=== PATIENT | male | born 2000 | race Caucasian/White ===

== ENCOUNTER 2020-01-10 21:37 | Emergency (ER) | payer BC ==
[2020-01-10] MEDS ORDERED: Sulfamethoxazole/Trimethoprim 800-160 MG Tab PO ONE (22:02)
[2020-01-10] MEDS ORDERED: Cephalexin 500 MG Cap PO ONE (22:02)
--- NOTE | 2020-01-10 22:06 | EDM.PDOC ---
ED HPI GENERAL MEDICAL PROBLEM - General Chief Complaint: Skin Complaint Stated Complaint: right leg swollen Time Seen by Provider: 01/10/20 21:50 Source of Information: Reports: Patient History Limitations: Reports: No Limitations - History of Present Illness INITIAL COMMENTS - FREE TEXT/NARRATIVE: History of present illness: [Patient is 19-year-old male who presents with pain involving his right lower leg. He states that there is an area of redness that started out small but has continued to grow in size over the last few days. He estimates is been there for about 3 days now. He is not diabetic, denies hypertension, denies any known injury or trauma to the leg. Denies any known bug bites or tick bites. States that he did have a sore throat about 3 weeks ago but it resolved without any intervention or antibiotics. Has not tried any pain medicine at home. States the pain is exacerbated by walking on it. No history of cellulitis. Denies any history of DVT or PE.] Review of systems: As per history of present illness and below otherwise all systems reviewed and negative. Past medical history: As per history of present illness and as reviewed below otherwise noncontributory. Surgical history: As per history of present illness and as reviewed below otherwise noncontributory. Social history: No reported history of drug or alcohol abuse. Family history: As per history of present illness and as reviewed below otherwise noncontributory. Physical exam: General: Awake, alert, no acute distress, A&O X3. HEENT: Atraumatic, normocephalic, pupils reactive, negative for conjunctival pallor or scleral icterus, mucous membranes moist, throat clear, neck supple, nontender, trachea midline. Lungs: Clear to auscultation, breath sounds equal bilaterally, chest nontender. Heart: RRR, normal S1S2, no JVD. Abdomen: Soft, nondistended, nontender. Negative for masses or hepatosplenomegaly. Negative for costovertebral tenderness. Pelvis: Stable nontender. Genitourinary: Deferred. Rectal: Deferred. Extremities: Atraumatic, no edema, Neurovascular unremarkable. Neuro: Motor and sensory grossly intact throughout. Exam nonfocal. SKIN: 5 x 5 cm area of erythema, induration, and warmth to the touch over the medial/anterior portion of the right lower leg. no calf pain or palpable cords Diagnostics: [] Therapeutics: [] Impression: [] Plan: [] Definitive disposition and diagnosis as appropriate pending reevaluation and review of above. - Related Data Allergies Allergy/AdvReac Type Severity Reaction Status Date / Time No Known Allergies Allergy Verified 01/10/20 21:54 Home Meds: Home Meds Sulfamethoxazole/Trimethoprim [Bactrim Ds Tablet] 1 each PO BID 7 Days #14 tablet 01/10/20 [Rx] cephALEXin [Keflex] 500 mg PO Q6H 7 Days #28 capsule 01/10/20 [Rx] Past Medical History - Past Health History Medical/Surgical History: Denies Medical/Surgical History Social & Family History - Recreational Drug Use Recreational Drug Use: No ED ROS GENERAL - Review of Systems Review Of Systems: Comprehensive ROS is negative, except as noted in HPI. ED EXAM, SKIN/RASH Exam: See Below (See H&P) ED SKIN PROCEDURES - Additional/Other Procedure(s) Other (Free Text) Procedure(s): Soft tissue ultrasound performed at the bedside reveals evidence of cobblestoning of the subcutaneous tissue over the suspected cellulitis region. No evidence for abscess on the ultrasound. Performed and interpreted by Tony Dumont MD Course - Vital Signs Text/Narrative:: Patient is mildly tachycardic. Based on his physical exam and symptoms he appears to have a relatively uncomplicated course of cellulitis of the leg. He received dose of antibiotics here and was sent with prescription for antibiotics for the next 7 days. Return precautions were also provided. Believe he will do well in the outpatient setting on oral antibiotics. Warned him for systemic symptoms such as fever, chills, spreading redness and signs of infection, etc. He feels comfortable this plan and is stable at discharge. Last Recorded V/S: Last Vital Signs Temp 36.8 C 01/10/20 21:47 Pulse 116 H 01/10/20 21:47 Resp 14 01/10/20 21:47 BP 143/71 H 01/10/20 21:47 Pulse Ox 98 01/10/20 21:47 - Orders/Labs/Meds Meds: Medications Discontinued Medications Generic Name Dose Route Start Last Admin Trade Name Freq PRN Reason Stop Dose Admin Cephalexin 500 mg 01/10/20 22:02 01/10/20 22:20 Keflex PO 01/10/20 22:03 500 mg ONETIME ONE Administration Trimethoprim/Sulfamethoxazole 1 tab 01/10/20 22:02 01/10/20 22:20 Septra Ds PO 01/10/20 22:03 1 tab ONETIME ONE Administration Departure - Departure Time of Disposition: 22:30 Disposition: Home, Self-Care 01 Condition: Good Clinical Impression: Cellulitis - Discharge Information Prescriptions: Sulfamethoxazole/Trimethoprim [Bactrim Ds Tablet] 1 each PO BID 7 Days #14 tablet cephALEXin [Keflex] 500 mg PO Q6H 7 Days #28 capsule Instructions: Cellulitis, Adult Referrals: PCP,None [Primary Care Provider] - Forms: ED Department Discharge Additional Instructions: Take all medications as prescribed. Follow-up with primary care doctor. Return to the ED with any new or worsening symptoms. The following information is given to patients seen in the emergency department who are being discharged to home. This information is to outline your options for follow-up care. We provide all patients seen in our emergency department with a follow-up referral. The need for follow-up, as well as the timing and circumstances, are variable depending upon the specifics of your emergency department visit. If you don't have a primary care physician on staff, we will provide you with a referral. We always advise you to contact your personal physician following an emergency department visit to inform them of the circumstance of the visit and for follow-up with them and/or the need for any referrals to a consulting specialist. The emergency department will also refer you to a specialist when appropriate. This referral assures that you have the opportunity for follow-up care with a specialist. All of these measure are taken in an effort to provide you with optimal care, which includes your follow-up. Under all circumstances we always encourage you to contact your private physician who remains a resource for coordinating your care. When calling for follow-up care, please make the office aware that this follow-up is from your recent emergency room visit. If for any reason you are refused follow-up, please contact the [facility] Emergency Department at and asked to speak to the emergency department charge nurse. Sepsis Event Note (ED) - Evaluation Sepsis Screening Result: No Definite Risk - Focused Exam Vital Signs: Vital Signs Temp Pulse Resp BP Pulse Ox 01/10/20 21:47 36.8 C 116 H 14 143/71 H 98
== END 2020-01-10 22:35 | disposition home or self-care (01) ==
LOC: MW.ED 21:37
DX: L03.115 Cellulitis of right lower limb (principal); R00.0 Tachycardia, unspecified
CPT/HCPCS: 99283; A9270

== ENCOUNTER 2020-01-12 22:43 | Inpatient (IN) | payer BC ==
[2020-01-12] MEDS ORDERED: Sodium Chloride 0.9% 2.5 ML Syringe FLUSH PRN (23:11)
[2020-01-12] MEDS ORDERED: Morphine 4 MG/ML Syringe IVPUSH ONE (23:11)
[2020-01-12] MEDS ORDERED: Ketorolac 15 MG/ML SDV IVPUSH ONE (23:11)
[2020-01-12] MEDS ORDERED: Ondansetron 4 MG/2 ML SDV IVPUSH ONE (23:11)
[2020-01-12] MEDS ORDERED: Sodium Chloride 0.9% 10 ML Syringe FLUSH PRN (23:11)
[2020-01-12] MEDS ORDERED: Sodium Chloride 0.9% 3,000 ML IV ONE (23:11)
--- NOTE | 2020-01-12 23:16 | EDM.PDOC ---
ED HPI GENERAL MEDICAL PROBLEM - General Chief Complaint: Skin Complaint Stated Complaint: CELLULITIS Time Seen by Provider: 01/12/20 22:47 Source of Information: Reports: Patient History Limitations: Reports: No Limitations - History of Present Illness INITIAL COMMENTS - FREE TEXT/NARRATIVE: History of present illness: [Patient is 19-year-old male with a history of recently diagnosed cellulitis of the right lower extremity who presents with recurrent and worsening cellulitis. I saw him 2 days ago, he had an area of erythema and redness consistent with cellulitis over the anterior right lower leg. He was mildly tachycardic but otherwise nontoxic in appearance with no fever. I provided him with Bactrim and Keflex which he has been taking for the last 2 days. He states that in spite of this his symptoms have worsened and the area of redness has spread instead of gone down. Denies fever. Denies any systemic symptoms. She states the area of infection does not seem to be getting better in spite of the antibiotics. States the pain has worsened and that ibuprofen is not as effective as it was early on.] Review of systems: As per history of present illness and below otherwise all systems reviewed and negative. Past medical history: As per history of present illness and as reviewed below otherwise noncontributory. Surgical history: As per history of present illness and as reviewed below otherwise noncontributory. Social history: No reported history of drug or alcohol abuse. Family history: As per history of present illness and as reviewed below otherwise noncontributory. Physical exam: General: Awake, alert, no acute distress, A&O X3. HEENT: Atraumatic, normocephalic, pupils reactive, negative for conjunctival pallor or scleral icterus, mucous membranes moist, throat clear, neck supple, nontender, trachea midline. Lungs: Clear to auscultation, breath sounds equal bilaterally, chest nontender. Heart: tachycardic, normal S1S2, no JVD. Abdomen: Soft, nondistended, nontender. Negative for masses or hepatosplenomegaly. Negative for costovertebral tenderness. Pelvis: Stable nontender. Genitourinary: Deferred. Rectal: Deferred. Extremities: Atraumatic, no edema, Neurovascular unremarkable. Skin: Patient with area of erythema over the right anterior lower extremity, slightly worse than his initial presentation, no evidence for any fluctuant mass or purulent discharge on examination. Area of erythema is roughly 8 x 10 cm. Right leg is neurovascularly intact Neuro: Motor and sensory grossly intact throughout. Exam nonfocal. Diagnostics: [] Therapeutics: [] Impression: [] Plan: [] Definitive disposition and diagnosis as appropriate pending reevaluation and review of above. Right Leg Pain Score (Numeric/FACES): 8 - Related Data Allergies Allergy/AdvReac Type Severity Reaction Status Date / Time No Known Allergies Allergy Verified 01/12/20 23:12 Home Meds: Home Meds Sulfamethoxazole/Trimethoprim [Bactrim Ds Tablet] 1 each PO BID 7 Days #14 tablet 01/10/20 [Rx] cephALEXin [Keflex] 500 mg PO Q6H 7 Days #28 capsule 01/10/20 [Rx] Past Medical History - Past Health History Medical/Surgical History: Denies Medical/Surgical History ED ROS GENERAL - Review of Systems Review Of Systems: Comprehensive ROS is negative, except as noted in HPI. ED EXAM, SKIN/RASH Exam: See Below (see h and p) Course - Vital Signs Text/Narrative:: Patient to be admitted for continued IV antibiotics for cellulitis that was refractory to outpatient antibiotics. Vital signs stable at the time of admission. Status post vancomycin and clindamycin. Blood cultures drawn. Patient agreeable with plan and stable at time of admission. Last Recorded V/S: Last Vital Signs Temp 36.1 C 01/12/20 23:08 Pulse 122 H 01/12/20 23:08 Resp 18 01/12/20 23:08 BP 145/82 H 01/12/20 23:08 Pulse Ox 98 01/12/20 23:08 - Orders/Labs/Meds Orders: Active Orders 24 hr Category Date Time Status Admission Status [Patient Status] [ADT] Stat ADT 01/13/20 01:03 Ordered CULTURE BLOOD [BC] Stat Lab 01/12/20 23:56 Results CULTURE BLOOD [BC] Stat Lab 01/12/20 23:59 Received Clindamycin Phosphate [Cleocin] 600 mg Med 01/13/20 00:56 Active Sodium Chloride 0.9% [Normal Saline] 50 ml IV ONETIME Sodium Chloride 0.9% [Normal Saline] 3,000 ml Med 01/12/20 23:11 Active IV .Bolus Sodium Chloride 0.9% [Saline Flush] Med 01/12/20 23:11 Active 10 ml FLUSH ASDIRECTED PRN Sodium Chloride 0.9% [Saline Flush] Med 01/12/20 23:11 Active 2.5 ml FLUSH ASDIRECTED PRN Blood Culture x2 Reflex Set [OM.PC] Stat Oth 01/12/20 23:11 Ordered Saline Lock Insert [OM.PC] Stat Oth 01/12/20 23:11 Ordered Medication Orders Sodium Chloride (Normal Saline) 3,000 mls @ 999 mls/hr IV .Bolus ONE Stop: 01/13/20 02:11 Last Admin: 01/12/20 23:33 Dose: 999 mls/hr Documented by: HARVEY Clindamycin Phosphate 600 mg/ (Sodium Chloride) 54 mls @ 100 mls/hr IV ONETIME ONE Stop: 01/13/20 01:28 Sodium Chloride (Saline Flush) 10 ml FLUSH ASDIRECTED PRN PRN Reason: Keep Vein Open Sodium Chloride (Saline Flush) 2.5 ml FLUSH ASDIRECTED PRN PRN Reason: Keep Vein Open Labs: Laboratory Tests 01/12/20 01/12/20 01/12/20 Range/Units 23:15 23:15 23:15 WBC 16.01 H (4.0-11.0) K/uL RBC 4.99 (4.50-5.90) M/uL Hgb 14.8 (13.0-17.0) g/dL Hct 42.3 (38.0-50.0) % MCV 84.8 (80.0-98.0) fL MCH 29.7 (27.0-32.0) pg MCHC 35.0 (31.0-37.0) g/dL RDW Std Deviation 38.7 (28.0-62.0) fl RDW Coeff of Francisca 13 (11.0-15.0) % Plt Count 234 (150-400) K/uL MPV 10.20 (7.40-12.00) fL Neut % (Auto) 77.0 (48.0-80.0) % Lymph % (Auto) 12.7 L (16.0-40.0) % [place] % (Auto) 8.5 (0.0-15.0) % Eos % (Auto) 1.4 (0.0-7.0) % Baso % (Auto) 0.4 (0.0-1.5) % Neut # (Auto) 12.3 H (1.4-5.7) K/uL Lymph # (Auto) 2.0 (0.6-2.4) K/uL [place] # (Auto) 1.4 H (0.0-0.8) K/uL Eos # (Auto) 0.2 (0.0-0.7) K/uL Baso # (Auto) 0.1 (0.0-0.1) K/uL Nucleated RBC % 0.0 /100WBC Nucleated RBCs # 0 K/uL Lactate 1.1 (0.20-2.00) mmol/L Sodium 137 (136-148) mmol/L Potassium 3.7 (3.5-5.1) mmol/L Chloride 103 (98-107) mmol/L Carbon Dioxide 23.1 (21.0-32.0) mmol/L BUN 11 (7.0-18.0) mg/dL Creatinine 0.9 (0.8-1.3) mg/dL Est Cr Clr Drug Dosing 146.73 mL/min Estimated GFR (MDRD) > 60.0 ml/min Glucose 96 (74-106) mg/dL Calcium 9.4 (8.5-10.1) mg/dL Total Bilirubin 0.5 (0.2-1.0) mg/dL AST 17 (15-37) IU/L ALT 26 (14-63) IU/L Alkaline Phosphatase 64 (46-116) U/L Total Protein 8.4 H (6.4-8.2) g/dL Albumin 3.8 (3.4-5.0) g/dL Globulin 4.6 H (2.6-4.0) g/dL Albumin/Globulin Ratio 0.8 L (0.9-1.6) Meds: Medications Generic Name Dose Route Start Last Admin Trade Name Freq PRN Reason Stop Dose Admin Sodium Chloride 3,000 mls @ 999 mls/hr 01/12/20 23:11 01/12/20 23:33 Normal Saline IV 01/13/20 02:11 999 mls/hr .Bolus ONE Administration Clindamycin Phosphate 600 mg/ 54 mls @ 100 mls/hr 01/13/20 00:56 Sodium Chloride IV 01/13/20 01:28 ONETIME ONE Sodium Chloride 10 ml 01/12/20 23:11 Saline Flush FLUSH ASDIRECTED PRN Keep Vein Open Sodium Chloride 2.5 ml 01/12/20 23:11 Saline Flush FLUSH ASDIRECTED PRN Keep Vein Open Discontinued Medications Generic Name Dose Route Start Last Admin Trade Name Freq PRN Reason Stop Dose Admin Diphenhydramine HCl 50 mg 01/13/20 00:55 Benadryl IVPUSH 01/13/20 00:56 ONETIME ONE Vancomycin HCl 1,500 mg/ 100 mls @ 100 mls/hr 01/12/20 23:11 01/13/20 00:02 Sodium Chloride IV 01/13/20 00:10 100 mls/hr ONETIME ONE Administration Vancomycin HCl 1.5 gm/ Premix 300 mls @ 300 mls/hr 01/13/20 00:01 IV 01/13/20 00:02 ONETIME ONE Ketorolac Tromethamine 15 mg 01/12/20 23:11 01/12/20 23:36 Toradol IVPUSH 01/12/20 23:12 15 mg ONETIME ONE Administration Morphine Sulfate 4 mg 01/12/20 23:11 01/12/20 23:37 Morphine IVPUSH 01/12/20 23:12 4 mg ONETIME ONE Administration Ondansetron HCl 4 mg 01/12/20 23:11 01/12/20 23:34 Zofran IVPUSH 01/12/20 23:12 4 mg ONETIME ONE Administration Departure - Departure Time of Disposition: 01:06 Disposition: Admitted As Inpatient 64 Condition: Good Clinical Impression: Cellulitis, Sepsis - Discharge Information Referrals: Edgar Verde MD [Primary Care Provider] - Forms: ED Department Discharge Critical Care Note - Critical Care Note Total Time (mins): 35 Comments: Patient has refractory cellulitis to outpatient antibiotics. On arrival he is tachycardic, has leukocytosis, with source of an infection, technically meeting sepsis criteria. He showed clinical improvement through his emergency department stay. He received 3 L of normal saline, IV vancomycin and clindamycin, blood cultures were drawn, lactic acid normal, he required frequent reexaminations, hemodynamic monitoring, and reassessment after fluid bolus and antibiotics provided. Sepsis Event Note (ED) - Evaluation Sepsis Screening Result: No Definite Risk - Focused Exam Vital Signs: Vital Signs Temp Pulse Resp BP Pulse Ox 01/12/20 23:08 36.1 C 122 H 18 145/82 H 98 - My Orders Last 24 Hours: My Active Orders 01/12/20 23:11 Sodium Chloride 0.9% [Normal Saline] 3,000 ml IV .Bolus Sodium Chloride 0.9% [Saline Flush] 10 ml FLUSH ASDIRECTED PRN Sodium Chloride 0.9% [Saline Flush] 2.5 ml FLUSH ASDIRECTED PRN Blood Culture x2 Reflex Set [OM.PC] Stat Saline Lock Insert [OM.PC] Stat 01/12/20 23:56 CULTURE BLOOD [BC] Stat 01/12/20 23:59 CULTURE BLOOD [BC] Stat 01/13/20 00:56 Clindamycin Phosphate [Cleocin] 600 mg Sodium Chloride 0.9% [Normal Saline] 50 ml IV ONETIME 01/13/20 01:03 Admission Status [Patient Status] [ADT] Stat - Assessment/Plan Last 24 Hours: My Active Orders 01/12/20 23:11 Sodium Chloride 0.9% [Normal Saline] 3,000 ml IV .Bolus Sodium Chloride 0.9% [Saline Flush] 10 ml FLUSH ASDIRECTED PRN Sodium Chloride 0.9% [Saline Flush] 2.5 ml FLUSH ASDIRECTED PRN Blood Culture x2 Reflex Set [OM.PC] Stat Saline Lock Insert [OM.PC] Stat 01/12/20 23:56 CULTURE BLOOD [BC] Stat 01/12/20 23:59 CULTURE BLOOD [BC] Stat 01/13/20 00:56 Clindamycin Phosphate [Cleocin] 600 mg Sodium Chloride 0.9% [Normal Saline] 50 ml IV ONETIME 01/13/20 01:03 Admission Status [Patient Status] [ADT] Stat Assessment:: 01/13/20 - 0100: Sepsis reassessment and reevaluation shows patient's tachycardia has resolved, he is feeling slightly itchy after getting the vancomycin but otherwise pain is controlled and he is overall feeling well.
[2020-01-12 23:55] LABS: BLOOD UREA NITROGEN,BUN 11 mg/dL (7.0-18.0); CARBON DIOXIDE,CO2 23.1 mmol/L (21.0-32.0); CHLORIDE,CL 103 mmol/L (98-107); GLUCOSE RANDOM 96 mg/dL (74-106); POTASSIUM,K 3.7 mmol/L (3.5-5.1); SODIUM,NA 137 mmol/L (136-148)
--- NOTE | 2020-01-13 00:42 | CR ---
Indication: Cellulitis, eval for deep infection. Technique: Two views of the right tibia and fibula Comparison: None Findings: The tibia and fibula are intact. There is no fracture or osseous erosion. Mild leg subcutaneous edema is noted. There is no subcutaneous emphysema. Impression: No findings to suggest osteomyelitis. Dictated by Jacy Marion MD @ Jan 13 2020 12:39AM Signed by Dr. Jacy Marion @ Jan 13 2020 12:41AM
[2020-01-13] MEDS ORDERED: diphenhydrAMINE 50 MG/ML SDV IVPUSH ONE (00:55)
[2020-01-13] MEDS ORDERED: Clindamycin Phosphate in D5W 900 MG in Premix Bag 1 BAG IV ONE ×2 (01:12)
[2020-01-13] MEDS ORDERED: diphenhydrAMINE 50 MG/ML SDV IVPUSH PRN (03:36)
[2020-01-13] MEDS: Lactated Ringers 1,000 ML IV SCH ×3 (03:49→22:57)
[2020-01-13] MEDS: Morphine 2 MG/ML SYRINGE IVPUSH PRN ×3 (03:59→19:45)
[2020-01-13] MEDS ORDERED: Heparin Sodium 5,000 Units/ML Vial SUBCUT SCH (06:00)
[2020-01-13 06:26] LABS: BLOOD UREA NITROGEN,BUN 11 mg/dL (7.0-18.0); CARBON DIOXIDE,CO2 19.9 mmol/L (21.0-32.0); GLUCOSE RANDOM 85 mg/dL (74-106)
[2020-01-13 06:38] LABS: CHLORIDE,CL 103 mmol/L (98-107); POTASSIUM,K 4.5 mmol/L (3.5-5.1); SODIUM,NA 135 mmol/L (136-148)
--- NOTE | 2020-01-13 07:27 | PCM.HP.2 ---
<Bull Telles M - Last Filed: 01/13/20 11:01> H&P History of Present Illness - General Date of Service: 01/13/20 Admit Problem/Dx: Admission Diagnosis/Problem Admission Diagnosis/Problem Cellulitis of leg Source of Information: Patient History Limitations: Reports: No Limitations - History of Present Illness Initial Comments - Free Text/Narative: 19-year-old male presents with right anterior leg swelling and redness for approximately 1 week. He reports no significant PMH. Patient was seen in the ED approximately 2 days ago, diagnosed with cellulitis and given scripts for bactrim and keflex. Patient reports that he took the antibiotics for 2 days and the area of redness spread further. He reports that the area feels hot, warm to touch and is a bit painful. He denies any prior history of skin infections. Denies any trauma to leg, laceration or insect bites. Denies any fevers, chills, sore throat, cough, SOB, chest pain, nausea, vomiting, abdominal pain, diarrhea, blood in stool, blood in urine, numbness or tingling in extremities. In the ER, WBC 16,000, lactate normal and CMP unremarkable. Patient given 3 L IV NS bolus, blood cultures obtained and given doses of IV vancomycin and IV clindamycin. Tib/fib x-ray showed mild leg subcutaneous edema, no subcutaneous emphysema and no findings to suggest osteomyelitis. Patient admitted for further evaluation and treatment. Right Leg Pain Score (Numeric/FACES): 8 - Related Data Allergies/Adverse Reactions: Allergies Allergy/AdvReac Type Severity Reaction Status Date / Time No Known Allergies Allergy Verified 01/13/20 03:01 Home Medications: Home Meds Sulfamethoxazole/Trimethoprim [Bactrim Ds Tablet] 1 each PO BID 7 Days #14 tablet 01/10/20 [Rx] cephALEXin [Keflex] 500 mg PO Q6H 7 Days #28 capsule 01/10/20 [Rx] Past Medical History - Past Health History Medical/Surgical History: Denies Medical/Surgical History Social & Family History - Caffeine Use Caffeine Use: Reports: Coffee, Soda, Tea - Recreational Drug Use Recreational Drug Use: No H&P Review of Systems - Review of Systems: Review Of Systems: Comprehensive ROS is negative, except as noted in HPI. Exam - Exam Exam: See Below - Vital Signs Vital Signs: Last Vital Signs Temp 37.6 C 01/13/20 02:40 Pulse 96 01/13/20 02:40 Resp 17 01/13/20 02:40 BP 133/74 01/13/20 02:40 Pulse Ox 98 01/13/20 02:40 Weight: 93 kg - Exam General: Alert, Oriented, Cooperative, Other (NAD) HEENT: Conjunctiva Clear, EOMI, Hearing Intact, Mucosa Moist & [place], Posterior Pharynx Clear, Pupils Equal, Pupils Reactive Neck: Supple, Trachea Midline Lungs: Clear to Auscultation, Normal Respiratory Effort Cardiovascular: Regular Rate, Regular Rhythm GI/Abdominal Exam: Normal Bowel Sounds, Soft, Non-Tender, No Distention Peripheral Pulses: 2+: Radial (L), Radial (R), Posterior Tibial (L), Posterior Tibial (R) Skin: Other (Right leg: area of erythema and edema over anterior mid-leg approximately 10 cm x 10 cm, non-tender to palpation, increased warmth to touch, appears to have receded approximately 1 cm from pencil markings.) Neurological: Cranial Nerves Intact, Strength Equal Bilateral, Normal Speech, Normal Tone Neuro Extensive - Mental Status: Alert, Oriented x3, Normal Mood/Affect Psychiatric: Alert, Normal Affect, Normal Mood - Patient Data Lab Results Last 24 hrs: Laboratory Results - last 24 hr 01/12/20 01/12/20 01/12/20 Range/Units 23:15 23:15 23:15 WBC 16.01 H (4.0-11.0) K/uL RBC 4.99 (4.50-5.90) M/uL Hgb 14.8 (13.0-17.0) g/dL Hct 42.3 (38.0-50.0) % MCV 84.8 (80.0-98.0) fL MCH 29.7 (27.0-32.0) pg MCHC 35.0 (31.0-37.0) g/dL RDW Std Deviation 38.7 (28.0-62.0) fl RDW Coeff of Francisca 13 (11.0-15.0) % Plt Count 234 (150-400) K/uL MPV 10.20 (7.40-12.00) fL Neut % (Auto) 77.0 (48.0-80.0) % Lymph % (Auto) 12.7 L (16.0-40.0) % [place] % (Auto) 8.5 (0.0-15.0) % Eos % (Auto) 1.4 (0.0-7.0) % Baso % (Auto) 0.4 (0.0-1.5) % Neut # (Auto) 12.3 H (1.4-5.7) K/uL Lymph # (Auto) 2.0 (0.6-2.4) K/uL [place] # (Auto) 1.4 H (0.0-0.8) K/uL Eos # (Auto) 0.2 (0.0-0.7) K/uL Baso # (Auto) 0.1 (0.0-0.1) K/uL Nucleated RBC % 0.0 /100WBC Nucleated RBCs # 0 K/uL Lactate 1.1 (0.20-2.00) mmol/L Sodium 137 (136-148) mmol/L Potassium 3.7 (3.5-5.1) mmol/L Chloride 103 (98-107) mmol/L Carbon Dioxide 23.1 (21.0-32.0) mmol/L BUN 11 (7.0-18.0) mg/dL Creatinine 0.9 (0.8-1.3) mg/dL Est Cr Clr Drug Dosing 146.73 mL/min Estimated GFR (MDRD) > 60.0 ml/min Glucose 96 (74-106) mg/dL Calcium 9.4 (8.5-10.1) mg/dL Total Bilirubin 0.5 (0.2-1.0) mg/dL AST 17 (15-37) IU/L ALT 26 (14-63) IU/L Alkaline Phosphatase 64 (46-116) U/L Total Protein 8.4 H (6.4-8.2) g/dL Albumin 3.8 (3.4-5.0) g/dL Globulin 4.6 H (2.6-4.0) g/dL Albumin/Globulin Ratio 0.8 L (0.9-1.6) COVID-19 (CURT) (NEGATIVE) 01/13/20 01/13/20 01/13/20 Range/Units 01:25 05:33 06:15 WBC 14.88 H (4.0-11.0) K/uL RBC 4.49 L (4.50-5.90) M/uL Hgb 13.1 (13.0-17.0) g/dL Hct 38.5 (38.0-50.0) % MCV 85.7 (80.0-98.0) fL MCH 29.2 (27.0-32.0) pg MCHC 34.0 (31.0-37.0) g/dL RDW Std Deviation 39.4 (28.0-62.0) fl RDW Coeff of Francisca 13 (11.0-15.0) % Plt Count 214 (150-400) K/uL MPV 10.40 (7.40-12.00) fL Neut % (Auto) 76.2 (48.0-80.0) % Lymph % (Auto) 13.4 L (16.0-40.0) % [place] % (Auto) 8.5 (0.0-15.0) % Eos % (Auto) 1.6 (0.0-7.0) % Baso % (Auto) 0.3 (0.0-1.5) % Neut # (Auto) 11.3 H (1.4-5.7) K/uL Lymph # (Auto) 2.0 (0.6-2.4) K/uL [place] # (Auto) 1.3 H (0.0-0.8) K/uL Eos # (Auto) 0.2 (0.0-0.7) K/uL Baso # (Auto) 0.0 (0.0-0.1) K/uL Nucleated RBC % 0.0 /100WBC Nucleated RBCs # 0 K/uL Lactate (0.20-2.00) mmol/L Sodium 135 L (136-148) mmol/L Potassium 4.5 (3.5-5.1) mmol/L Chloride 103 (98-107) mmol/L Carbon Dioxide 19.9 L (21.0-32.0) mmol/L BUN 11 (7.0-18.0) mg/dL Creatinine 0.9 (0.8-1.3) mg/dL Est Cr Clr Drug Dosing 146.73 mL/min Estimated GFR (MDRD) > 60.0 ml/min Glucose 85 (74-106) mg/dL Calcium 8.5 (8.5-10.1) mg/dL Total Bilirubin (0.2-1.0) mg/dL AST (15-37) IU/L ALT (14-63) IU/L Alkaline Phosphatase (46-116) U/L Total Protein (6.4-8.2) g/dL Albumin (3.4-5.0) g/dL Globulin (2.6-4.0) g/dL Albumin/Globulin Ratio (0.9-1.6) COVID-19 (CURT) NEGATIVE (NEGATIVE) Result Diagrams: 01/13/20 06:15 01/13/20 05:33 Hiren Results Last 24 hrs: Microbiology 01/12/20 23:56 Anaerobic Blood Culture - Final Blood - Venous Sepsis Event Note - Evaluation Sepsis Screening Result: Sepsis Risk - Focused Exam Vital Signs: Vital Signs Temp Pulse Resp BP Pulse Ox 01/13/20 02:40 37.6 C 96 17 133/74 98 01/13/20 01:51 95 16 121/80 100 01/12/20 23:08 36.1 C 122 H 18 145/82 H 98 Problem List Initiated/Reviewed/Updated: Yes Orders Last 24hrs: Active Orders 24 hr Category Date Time Status Admission Status [Patient Status] [ADT] Stat ADT 01/13/20 01:03 Active Ambulate [RC] ASDIRECTED Care 01/13/20 03:29 Active Discontinue Telemetry Monitoring [Cardiac Monitoring Care 01/13/20 03:38 Active Discontinue] [RC] Click to Edit Oxygen Therapy Adult [Oxygen Therapy] [RC] ASDIRECTED Care 01/13/20 03:27 Active Telemetry Monitoring [Cardiac Monitoring] [RC] Q8H Care 01/13/20 02:33 Active Vital Signs [RC] Q4H Care 01/13/20 03:26 Active Regular Diet [DIET] Diet 01/13/20 Breakfast Active CULTURE BLOOD [BC] Stat Lab 01/12/20 23:56 Results CULTURE BLOOD [BC] Stat Lab 01/12/20 23:59 Received VANCOMYCIN TROUGH [CHEM] Timed Lab 01/14/20 07:30 Ordered Acetaminophen [Tylenol Extra Strength] Med 01/13/20 03:35 Active 500 mg PO Q4H PRN Heparin Sodium Med 01/13/20 06:00 Active 5,000 units SUBCUT Q8H Ketorolac [Toradol] Med 01/13/20 03:34 Active 15 mg IVPUSH Q6H PRN Lactated Ringers [Ringers, Lactated] 1,000 ml Med 01/13/20 03:30 Active IV ASDIRECTED Morphine Med 01/13/20 03:33 Active 2 mg IVPUSH Q6H PRN Pharmacy to Dose - Vancomycin Med 01/13/20 03:30 Active 1 dose .XX ASDIRECTED Sodium Chloride 0.9% [Saline Flush] Med 01/12/20 23:11 Active 10 ml FLUSH ASDIRECTED PRN Sodium Chloride 0.9% [Saline Flush] Med 01/12/20 23:11 Active 2.5 ml FLUSH ASDIRECTED PRN Vancomycin 1.25 gm Med 01/13/20 08:00 Active Sodium Chloride 0.9% [Normal Saline (AdvBag)] 250 ml IV Q8H diphenhydrAMINE [Benadryl] Med 01/13/20 03:36 Active 25 mg IVPUSH Q6H PRN Blood Culture x2 Reflex Set [OM.PC] Stat Oth 01/12/20 23:11 Ordered Saline Lock Insert [OM.PC] Stat Oth 01/12/20 23:11 Ordered Medication Orders Acetaminophen (Tylenol Extra Strength) 500 mg PO Q4H PRN PRN Reason: Fever Diphenhydramine HCl (Benadryl) 25 mg IVPUSH Q6H PRN PRN Reason: Itching Heparin Sodium (Porcine) (Heparin Sodium) 5,000 units SUBCUT Q8H [facility] Last Admin: 01/13/20 06:06 Dose: 5,000 units Documented by: PASTGEN Lactated Ringer's (Ringers, Lactated) 1,000 mls @ 125 mls/hr IV ASDIRECTED MARGARETTE Last Admin: 01/13/20 03:49 Dose: 125 mls/hr Documented by: PASTGEN Vancomycin HCl 1.25 gm/ Sodium (Chloride) 250 mls @ 166.667 mls/hr IV Q8H [facility] Ketorolac Tromethamine (Toradol) 15 mg IVPUSH Q6H PRN PRN Reason: Pain Morphine Sulfate (Morphine) 2 mg IVPUSH Q6H PRN PRN Reason: Pain Last Admin: 01/13/20 03:59 Dose: 2 mg Documented by: ANGELA Sodium Chloride (Saline Flush) 10 ml FLUSH ASDIRECTED PRN PRN Reason: Keep Vein Open Sodium Chloride (Saline Flush) 2.5 ml FLUSH ASDIRECTED PRN PRN Reason: Keep Vein Open Vancomycin HCl (Pharmacy To Dose - Vancomycin) 1 dose .XX ASDIRECTED [facility] Assessment/Plan Comment:: Assessment and Plan: 1. Sepsis secondary to RLE cellulitis: - Admit to med/surg. Will treat with IV vancomycin. Blood cultures pending. Patient received 3 L IV NS bolus in ER and will continue IV LR 125 cc/hr. Lactate level normal. Vital signs stable. Leukocytosis downtrending today. Area of erythema appears to have receded approximately 1 cm from marked pencil drawings. Will continue to monitor. 2. DVT prophylaxis: Heparin. <Ana Rodríguez - Last Filed: 01/13/20 21:52> H&P History of Present Illness - General Admit Problem/Dx: Admission Diagnosis/Problem Admission Diagnosis/Problem Cellulitis of leg - History of Present Illness Initial Comments - Free Text/Narative: I performed a history and physical exam of the patient and discussed management with resident. I have reviewed the residents note and agree with documented findings and plan unless otherwise specified in my note. Exam - Vital Signs Vital Signs: Last Vital Signs Temp 37.1 C 01/13/20 19:36 Pulse 92 01/13/20 19:36 Resp 16 01/13/20 19:36 BP 135/53 L 01/13/20 19:36 Pulse Ox 97 01/13/20 19:36 - Patient Data Lab Results Last 24 hrs: Laboratory Results - last 24 hr 01/12/20 01/12/20 01/12/20 Range/Units 23:15 23:15 23:15 WBC 16.01 H (4.0-11.0) K/uL RBC 4.99 (4.50-5.90) M/uL Hgb 14.8 (13.0-17.0) g/dL Hct 42.3 (38.0-50.0) % MCV 84.8 (80.0-98.0) fL MCH 29.7 (27.0-32.0) pg MCHC 35.0 (31.0-37.0) g/dL RDW Std Deviation 38.7 (28.0-62.0) fl RDW Coeff of Francisca 13 (11.0-15.0) % Plt Count 234 (150-400) K/uL MPV 10.20 (7.40-12.00) fL Neut % (Auto) 77.0 (48.0-80.0) % Lymph % (Auto) 12.7 L (16.0-40.0) % [place] % (Auto) 8.5 (0.0-15.0) % Eos % (Auto) 1.4 (0.0-7.0) % Baso % (Auto) 0.4 (0.0-1.5) % Neut # (Auto) 12.3 H (1.4-5.7) K/uL Lymph # (Auto) 2.0 (0.6-2.4) K/uL [place] # (Auto) 1.4 H (0.0-0.8) K/uL Eos # (Auto) 0.2 (0.0-0.7) K/uL Baso # (Auto) 0.1 (0.0-0.1) K/uL Nucleated RBC % 0.0 /100WBC Nucleated RBCs # 0 K/uL Lactate 1.1 (0.20-2.00) mmol/L Sodium 137 (136-148) mmol/L Potassium 3.7 (3.5-5.1) mmol/L Chloride 103 (98-107) mmol/L Carbon Dioxide 23.1 (21.0-32.0) mmol/L BUN 11 (7.0-18.0) mg/dL Creatinine 0.9 (0.8-1.3) mg/dL Est Cr Clr Drug Dosing 146.73 mL/min Estimated GFR (MDRD) > 60.0 ml/min Glucose 96 (74-106) mg/dL Calcium 9.4 (8.5-10.1) mg/dL Total Bilirubin 0.5 (0.2-1.0) mg/dL AST 17 (15-37) IU/L ALT 26 (14-63) IU/L Alkaline Phosphatase 64 (46-116) U/L Total Protein 8.4 H (6.4-8.2) g/dL Albumin 3.8 (3.4-5.0) g/dL Globulin 4.6 H (2.6-4.0) g/dL Albumin/Globulin Ratio 0.8 L (0.9-1.6) COVID-19 (CURT) (NEGATIVE) 01/13/20 01/13/20 01/13/20 Range/Units 01:25 05:33 06:15 WBC 14.88 H (4.0-11.0) K/uL RBC 4.49 L (4.50-5.90) M/uL Hgb 13.1 (13.0-17.0) g/dL Hct 38.5 (38.0-50.0) % MCV 85.7 (80.0-98.0) fL MCH 29.2 (27.0-32.0) pg MCHC 34.0 (31.0-37.0) g/dL RDW Std Deviation 39.4 (28.0-62.0) fl RDW Coeff of Francisca 13 (11.0-15.0) % Plt Count 214 (150-400) K/uL MPV 10.40 (7.40-12.00) fL Neut % (Auto) 76.2 (48.0-80.0) % Lymph % (Auto) 13.4 L (16.0-40.0) % [place] % (Auto) 8.5 (0.0-15.0) % Eos % (Auto) 1.6 (0.0-7.0) % Baso % (Auto) 0.3 (0.0-1.5) % Neut # (Auto) 11.3 H (1.4-5.7) K/uL Lymph # (Auto) 2.0 (0.6-2.4) K/uL [place] # (Auto) 1.3 H (0.0-0.8) K/uL Eos # (Auto) 0.2 (0.0-0.7) K/uL Baso # (Auto) 0.0 (0.0-0.1) K/uL Nucleated RBC % 0.0 /100WBC Nucleated RBCs # 0 K/uL Lactate (0.20-2.00) mmol/L Sodium 135 L (136-148) mmol/L Potassium 4.5 (3.5-5.1) mmol/L Chloride 103 (98-107) mmol/L Carbon Dioxide 19.9 L (21.0-32.0) mmol/L BUN 11 (7.0-18.0) mg/dL Creatinine 0.9 (0.8-1.3) mg/dL Est Cr Clr Drug Dosing 146.73 mL/min Estimated GFR (MDRD) > 60.0 ml/min Glucose 85 (74-106) mg/dL Calcium 8.5 (8.5-10.1) mg/dL Total Bilirubin (0.2-1.0) mg/dL AST (15-37) IU/L ALT (14-63) IU/L Alkaline Phosphatase (46-116) U/L Total Protein (6.4-8.2) g/dL Albumin (3.4-5.0) g/dL Globulin (2.6-4.0) g/dL Albumin/Globulin Ratio (0.9-1.6) COVID-19 (CURT) NEGATIVE (NEGATIVE) Result Diagrams: 01/13/20 06:15 01/13/20 05:33 Hiren Results Last 24 hrs: Microbiology 01/12/20 23:56 Anaerobic Blood Culture - Final Blood - Venous Sepsis Event Note - Focused Exam Vital Signs: Vital Signs Temp Temp Pulse Resp BP Pulse Ox 01/13/20 19:36 37.1 C 92 16 135/53 L 97 01/13/20 16:34 37.5 C 93 16 136/74 99 01/13/20 16:33 100.0 C H 01/13/20 12:00 37.1 C 97 22 H 118/63 98 Orders Last 24hrs: Active Orders 24 hr Category Date Time Status Admission Status [Patient Status] [ADT] Stat ADT 01/13/20 01:03 Active Ambulate [RC] ASDIRECTED Care 01/13/20 03:29 Active Discontinue Telemetry Monitoring [Cardiac Monitoring Care 01/13/20 03:38 Active Discontinue] [RC] Click to Edit Oxygen Therapy Adult [Oxygen Therapy] [RC] ASDIRECTED Care 01/13/20 03:27 Active Vital Signs [RC] Q4H Care 01/13/20 03:26 Active Regular Diet [DIET] Diet 01/13/20 Breakfast Active CBC WITH AUTO DIFF [HEME] AM Lab 01/14/20 05:11 Ordered COMPREHENSIVE METABOLIC PN,CMP [CHEM] AM Lab 01/14/20 05:11 Ordered CULTURE BLOOD [BC] Stat Lab 01/12/20 23:56 Results CULTURE BLOOD [BC] Stat Lab 01/12/20 23:59 Received VANCOMYCIN TROUGH [CHEM] Timed Lab 01/14/20 07:30 Ordered Acetaminophen [Tylenol Extra Strength] Med 01/13/20 03:35 Active 500 mg PO Q4H PRN Enoxaparin [Lovenox] Med 01/13/20 14:00 Active 40 mg SUBCUT Q24H Ketorolac [Toradol] Med 01/13/20 03:34 Active 15 mg IVPUSH Q6H PRN Lactated Ringers [Ringers, Lactated] 1,000 ml Med 01/13/20 03:30 Active IV ASDIRECTED Morphine Med 01/13/20 03:33 Active 2 mg IVPUSH Q6H PRN Pharmacy to Dose - Vancomycin Med 01/13/20 03:30 Active 1 dose .XX ASDIRECTED Sodium Chloride 0.9% [Saline Flush] Med 01/12/20 23:11 Active 10 ml FLUSH ASDIRECTED PRN Sodium Chloride 0.9% [Saline Flush] Med 01/12/20 23:11 Active 2.5 ml FLUSH ASDIRECTED PRN Vancomycin 1.25 gm Med 01/13/20 08:00 Active Sodium Chloride 0.9% [Normal Saline (AdvBag)] 250 ml IV Q8H diphenhydrAMINE [Benadryl] Med 01/13/20 03:36 Active 25 mg IVPUSH Q6H PRN Blood Culture x2 Reflex Set [OM.PC] Stat Oth 01/12/20 23:11 Ordered Saline Lock Insert [OM.PC] Stat Oth 01/12/20 23:11 Ordered Code Status [Resuscitation Status] Routine Resus Stat 01/13/20 08:27 Ordered Medication Orders Acetaminophen (Tylenol Extra Strength) 500 mg PO Q4H PRN PRN Reason: Fever Diphenhydramine HCl (Benadryl) 25 mg IVPUSH Q6H PRN PRN Reason: Itching Enoxaparin Sodium (Lovenox) 40 mg SUBCUT Q24H MARGARETTE Last Admin: 01/13/20 14:53 Dose: 40 mg Documented by: PROFLUC Lactated Ringer's (Ringers, Lactated) 1,000 mls @ 125 mls/hr IV ASDIRECTED [facility] Last Admin: 01/13/20 13:22 Dose: 125 mls/hr Documented by: Infusion: 01/13/20 11:49 Dose: 125 mls/hr Documented by: Admin: 01/13/20 03:49 Dose: 125 mls/hr Documented by: ANGELA Vancomycin HCl 1.25 gm/ Sodium (Chloride) 250 mls @ 166.667 mls/hr IV Q8H MARGARETTE Last Admin: 01/13/20 15:00 Dose: 166.667 mls/hr Documented by: Infusion: 01/13/20 15:00 Dose: 166.667 mls/hr Documented by: Admin: 01/13/20 08:44 Dose: 166.667 mls/hr Documented by: JUVENCIO Ketorolac Tromethamine (Toradol) 15 mg IVPUSH Q6H PRN PRN Reason: Pain Last Admin: 01/13/20 14:53 Dose: 15 mg Documented by: Admin: 01/13/20 08:47 Dose: 15 mg Documented by: JUVENCIO Morphine Sulfate (Morphine) 2 mg IVPUSH Q6H PRN PRN Reason: Pain Last Admin: 01/13/20 19:45 Dose: 2 mg Documented by: Admin: 01/13/20 12:19 Dose: 2 mg Documented by: Admin: 01/13/20 03:59 Dose: 2 mg Documented by: ANGELA Sodium Chloride (Saline Flush) 10 ml FLUSH ASDIRECTED PRN PRN Reason: Keep Vein Open Sodium Chloride (Saline Flush) 2.5 ml FLUSH ASDIRECTED PRN PRN Reason: Keep Vein Open Vancomycin HCl (Pharmacy To Dose - Vancomycin) 1 dose .XX ASDIRECTED [facility]
[2020-01-13] MEDS: Ketorolac 15 MG/ML SDV IVPUSH PRN ×3 (08:47→23:06)
[2020-01-13] MEDS: Enoxaparin 40 MG/0.4 ML Syringe SUBCUT SCH (14:53)
--- NOTE | 2020-01-14 07:45 | PCM.PN ---
<Bull Telles M - Last Filed: 01/14/20 11:35> - General Info Date of Service: 01/14/20 Subjective Update: Fever yesterday afternoon. Tolerating oral diet. Reports cellulitis looks a bit better today but is having more swelling. - Patient Data Vitals - Most Recent: Last Vital Signs Temp 36.8 C 01/14/20 04:30 Pulse 88 01/14/20 04:30 Resp 16 01/14/20 04:30 BP 118/47 L 01/14/20 04:30 Pulse Ox 100 01/14/20 04:30 Weight - Most Recent: 93 kg I&O - Last 24 Hours: Intake & Output 01/13/20 01/14/20 01/14/20 22:59 06:59 14:59 Intake Total 1450 2839 Output Total 1775 Balance 1450 1064 Hiren Results Last 24 Hours: Microbiology 01/12/20 23:59 Aerobic Blood Culture - Preliminary Blood - Venous - Lab Draw NO GROWTH AFTER 1 DAY Anaerobic Blood Culture - Preliminary NO GROWTH AFTER 1 DAY 01/12/20 23:56 Aerobic Blood Culture - Preliminary Blood - Venous NO GROWTH AFTER 1 DAY Anaerobic Blood Culture - Final Med Orders - Current: Current Medications Acetaminophen (Tylenol Extra Strength) 500 mg PO Q4H PRN PRN Reason: Fever Diphenhydramine HCl (Benadryl) 25 mg IVPUSH Q6H PRN PRN Reason: Itching Enoxaparin Sodium (Lovenox) 40 mg SUBCUT Q24H [facility] Last Admin: 01/13/20 14:53 Dose: 40 mg Documented by: Lactated Ringer's (Ringers, Lactated) 1,000 mls @ 125 mls/hr IV ASDIRECTED [facility] Last Admin: 01/13/20 22:57 Dose: 125 mls/hr Documented by: Vancomycin HCl 1.25 gm/ Sodium (Chloride) 250 mls @ 166.667 mls/hr IV Q8H [facility] Last Admin: 01/13/20 22:59 Dose: 166.667 mls/hr Documented by: Ketorolac Tromethamine (Toradol) 15 mg IVPUSH Q6H PRN PRN Reason: Pain Last Admin: 01/13/20 23:06 Dose: 15 mg Documented by: Morphine Sulfate (Morphine) 2 mg IVPUSH Q6H PRN PRN Reason: Pain Last Admin: 01/13/20 19:45 Dose: 2 mg Documented by: Sodium Chloride (Saline Flush) 10 ml FLUSH ASDIRECTED PRN PRN Reason: Keep Vein Open Sodium Chloride (Saline Flush) 2.5 ml FLUSH ASDIRECTED PRN PRN Reason: Keep Vein Open Vancomycin HCl (Pharmacy To Dose - Vancomycin) 1 dose .XX ASDIRECTED [facility] Discontinued Medications Diphenhydramine HCl (Benadryl) 50 mg IVPUSH ONETIME ONE Stop: 01/13/20 00:56 Last Admin: 01/13/20 01:13 Dose: 50 mg Documented by: Heparin Sodium (Porcine) (Heparin Sodium) 5,000 units SUBCUT Q8H [facility] Last Admin: 01/13/20 06:06 Dose: 5,000 units Documented by: Vancomycin HCl 1,500 mg/ (Sodium Chloride) 100 mls @ 100 mls/hr IV ONETIME ONE Stop: 01/13/20 00:10 Last Admin: 01/13/20 00:02 Dose: 100 mls/hr Documented by: Sodium Chloride (Normal Saline) 3,000 mls @ 999 mls/hr IV .Bolus ONE Stop: 01/13/20 02:11 Last Admin: 01/12/20 23:33 Dose: 999 mls/hr Documented by: Vancomycin HCl 1.5 gm/ Premix 300 mls @ 300 mls/hr IV ONETIME ONE Stop: 01/13/20 00:02 Clindamycin Phosphate 600 mg/ (Sodium Chloride) 54 mls @ 100 mls/hr IV ONETIME ONE Stop: 01/13/20 01:28 Last Admin: 01/13/20 01:13 Dose: Not Given Documented by: Clindamycin Phosphate 900 mg/ (Premix) 50 mls @ 100 mls/hr IV ONETIME ONE Stop: 01/13/20 01:41 Last Admin: 01/13/20 01:12 Dose: 100 mls/hr Documented by: Ketorolac Tromethamine (Toradol) 15 mg IVPUSH ONETIME ONE Stop: 01/12/20 23:12 Last Admin: 01/12/20 23:36 Dose: 15 mg Documented by: Morphine Sulfate (Morphine) 4 mg IVPUSH ONETIME ONE Stop: 01/12/20 23:12 Last Admin: 01/12/20 23:37 Dose: 4 mg Documented by: Ondansetron HCl (Zofran) 4 mg IVPUSH ONETIME ONE Stop: 01/12/20 23:12 Last Admin: 01/12/20 23:34 Dose: 4 mg Documented by: - Exam General: Alert, Oriented, Cooperative, No Acute Distress Lungs: Clear to Auscultation, Normal Respiratory Effort Cardiovascular: Regular Rate, Regular Rhythm GI/Abdominal Exam: Normal Bowel Sounds, Soft, Non-Tender, No Distention Skin: Other (area of erythema on anterior mid-leg appears less intense today and has receded further from pencil markings. Non-tender to palpation, increased warmth to touch. ) Sepsis Event Note - Evaluation Sepsis Screening Result: Sepsis Risk - Focused Exam Vital Signs: Vital Signs Temp Pulse Resp BP Pulse Ox 01/14/20 04:30 36.8 C 88 16 118/47 L 100 01/13/20 23:08 37.4 C 104 H 16 136/52 L 98 - Problem List Review Problem List Initiated/Reviewed/Updated: Yes - My Orders Last 24 Hours: My Active Orders 01/13/20 08:27 Code Status [Resuscitation Status] Routine 01/14/20 05:11 CBC WITH AUTO DIFF [HEME] AM COMPREHENSIVE METABOLIC PN,CMP [CHEM] AM - Plan Plan:: Assessment and Plan: 1. Sepsis secondary to RLE cellulitis: - Patient's cellulitis has improved, however, not at the rate expected. Will broaden coverage by adding IV ceftriaxone and continue IV vancomycin. Will repeat blood cultures as patient has low-grade fevers. Will order RLE U/S to rule out DVT. 2. DVT prophylaxis: Heparin. <Ana Rodríguez - Last Filed: 01/21/20 10:59> - Patient Data Vitals - Most Recent: Last Vital Signs Temp 36.7 C 01/18/20 11:38 Pulse 80 01/18/20 11:38 Resp 17 01/18/20 11:38 BP 139/73 01/18/20 11:38 Pulse Ox 95 01/18/20 11:38 Med Orders - Current: Current Medications Discontinued Medications Acetaminophen (Tylenol Extra Strength) 500 mg PO Q4H PRN PRN Reason: Fever Last Admin: 01/14/20 12:27 Dose: 500 mg Documented by: Diphenhydramine HCl (Benadryl) 50 mg IVPUSH ONETIME ONE Stop: 01/13/20 00:56 Last Admin: 01/13/20 01:13 Dose: 50 mg Documented by: Diphenhydramine HCl (Benadryl) 25 mg IVPUSH Q6H PRN PRN Reason: Itching Enoxaparin Sodium (Lovenox) 40 mg SUBCUT Q24H [facility] Last Admin: 01/17/20 14:50 Dose: 40 mg Documented by: Heparin Sodium (Porcine) (Heparin Sodium) 5,000 units SUBCUT Q8H [facility] Last Admin: 01/13/20 06:06 Dose: 5,000 units Documented by: Vancomycin HCl 1,500 mg/ (Sodium Chloride) 100 mls @ 100 mls/hr IV ONETIME ONE Stop: 01/13/20 00:10 Last Admin: 01/13/20 00:02 Dose: 100 mls/hr Documented by: Sodium Chloride (Normal Saline) 3,000 mls @ 999 mls/hr IV .Bolus ONE Stop: 01/13/20 02:11 Last Admin: 01/12/20 23:33 Dose: 999 mls/hr Documented by: Vancomycin HCl 1.5 gm/ Premix 300 mls @ 300 mls/hr IV ONETIME ONE Stop: 01/13/20 00:02 Clindamycin Phosphate 600 mg/ (Sodium Chloride) 54 mls @ 100 mls/hr IV ONETIME ONE Stop: 01/13/20 01:28 Last Admin: 01/13/20 01:13 Dose: Not Given Documented by: Clindamycin Phosphate 900 mg/ (Premix) 50 mls @ 100 mls/hr IV ONETIME ONE Stop: 01/13/20 01:41 Last Admin: 01/13/20 01:12 Dose: 100 mls/hr Documented by: Lactated Ringer's (Ringers, Lactated) 1,000 mls @ 125 mls/hr IV ASDIRECTED [facility] Last Admin: 01/14/20 08:34 Dose: 125 mls/hr Documented by: Vancomycin HCl 1.25 gm/ Sodium (Chloride) 250 mls @ 166.667 mls/hr IV Q8H [facility] Last Admin: 01/14/20 14:40 Dose: Not Given Documented by: Vancomycin HCl 1.5 gm/ Premix 300 mls @ 150 mls/hr IV Q8H [facility] Last Admin: 01/15/20 00:29 Dose: 150 mls/hr Documented by: Ceftriaxone Sodium/Dextrose 1 (gm/ Premix) 50 mls @ 100 mls/hr IV Q24H [facility] Last Admin: 01/18/20 11:34 Dose: 100 mls/hr Documented by: Vancomycin HCl 1.75 gm/ Sodium (Chloride) 500 mls @ 250 mls/hr IV Q8H [facility] Last Admin: 01/17/20 12:00 Dose: Not Given Documented by: Vancomycin HCl 1.5 gm/ Premix 300 mls @ 150 mls/hr IV Q8H [facility] Last Admin: 01/18/20 11:40 Dose: Not Given Documented by: Ketorolac Tromethamine (Toradol) 15 mg IVPUSH ONETIME ONE Stop: 01/12/20 23:12 Last Admin: 01/12/20 23:36 Dose: 15 mg Documented by: Ketorolac Tromethamine (Toradol) 15 mg IVPUSH Q6H PRN PRN Reason: Pain Last Admin: 01/18/20 08:00 Dose: 15 mg Documented by: Morphine Sulfate (Morphine) 4 mg IVPUSH ONETIME ONE Stop: 01/12/20 23:12 Last Admin: 01/12/20 23:37 Dose: 4 mg Documented by: Morphine Sulfate (Morphine) 2 mg IVPUSH Q6H PRN PRN Reason: Pain Last Admin: 01/15/20 22:51 Dose: 2 mg Documented by: Ondansetron HCl (Zofran) 4 mg IVPUSH ONETIME ONE Stop: 01/12/20 23:12 Last Admin: 01/12/20 23:34 Dose: 4 mg Documented by: Sodium Chloride (Saline Flush) 10 ml FLUSH ASDIRECTED PRN PRN Reason: Keep Vein Open Sodium Chloride (Saline Flush) 2.5 ml FLUSH ASDIRECTED PRN PRN Reason: Keep Vein Open Vancomycin HCl (Pharmacy To Dose - Vancomycin) 1 dose .XX ASDIRECTED [facility] - Plan Plan:: I have seen and evaluated the patient and agree with the residents note unless specified in my note
[2020-01-14] MEDS: Lactated Ringers 1,000 ML IV SCH (08:34)
[2020-01-14] MEDS: Acetaminophen 500 MG Tab PO PRN ×2 (08:40→12:27)
[2020-01-14] MEDS: Morphine 2 MG/ML SYRINGE IVPUSH PRN ×2 (08:41→17:22)
[2020-01-14 08:46] LABS: BLOOD UREA NITROGEN,BUN 7 mg/dL (7.0-18.0); CARBON DIOXIDE,CO2 24.9 mmol/L (21.0-32.0); CHLORIDE,CL 101 mmol/L (98-107); GLUCOSE RANDOM 94 mg/dL (74-106); POTASSIUM,K 4.4 mmol/L (3.5-5.1); SODIUM,NA 137 mmol/L (136-148)
[2020-01-14] MEDS: Ketorolac 15 MG/ML SDV IVPUSH PRN ×2 (09:55→19:22)
--- NOTE | 2020-01-14 12:10 | US ---
Right lower extremity deep venous ultrasound: Duplex and color Doppler evaluation was obtained of the right common femoral, superficial femoral, popliteal, posterior tibial and peroneal veins. Findings: Subcutaneous edema noted around the knee. Normal compression and Doppler blood flow is seen within the deep veins. Impression: 1. Subcutaneous edema. 2. No findings of deep venous thrombosis within the right lower extremity. Diagnostic code #2 This report was dictated in MDT
[2020-01-14] MEDS: cefTRIAXone 1 GM in Premix Bag 1 BAG IV SCH (12:27)
[2020-01-14] MEDS: Enoxaparin 40 MG/0.4 ML Syringe SUBCUT SCH (14:56)
[2020-01-15] MEDS: Ketorolac 15 MG/ML SDV IVPUSH PRN ×3 (05:17→18:07)
[2020-01-15 06:01] LABS: BLOOD UREA NITROGEN,BUN 5 mg/dL (7.0-18.0); CARBON DIOXIDE,CO2 22.5 mmol/L (21.0-32.0); CHLORIDE,CL 104 mmol/L (98-107); GLUCOSE RANDOM 96 mg/dL (74-106); POTASSIUM,K 3.9 mmol/L (3.5-5.1); SODIUM,NA 138 mmol/L (136-148)
--- NOTE | 2020-01-15 08:12 | PCM.PN ---
- General Info Date of Service: 01/15/20 Subjective Update: Reports leg erythema and swelling is about the same as yesterday. Denies any fevers, chills, nausea or vomiting. - Patient Data Vitals - Most Recent: Last Vital Signs Temp 36.9 C 01/15/20 07:21 Pulse 89 01/15/20 07:21 Resp 16 01/15/20 07:21 BP 126/65 01/15/20 07:21 Pulse Ox 98 01/15/20 07:21 Weight - Most Recent: 93 kg I&O - Last 24 Hours: Intake & Output 01/14/20 01/15/20 01/15/20 22:59 06:59 14:59 Intake Total 920 2070 Output Total 1750 1950 Balance -830 120 Lab Results Last 24 Hours: Laboratory Results - last 24 hr 01/14/20 01/14/20 01/14/20 Range/Units 07:59 07:59 07:59 WBC 10.48 (4.0-11.0) K/uL RBC 4.48 L (4.50-5.90) M/uL Hgb 13.1 (13.0-17.0) g/dL Hct 38.4 (38.0-50.0) % MCV 85.7 (80.0-98.0) fL MCH 29.2 (27.0-32.0) pg MCHC 34.1 (31.0-37.0) g/dL RDW Std Deviation 39.0 (28.0-62.0) fl RDW Coeff of Francisca 13 (11.0-15.0) % Plt Count 189 (150-400) K/uL MPV 11.00 (7.40-12.00) fL Neut % (Auto) 76.0 (48.0-80.0) % Lymph % (Auto) 12.4 L (16.0-40.0) % [place] % (Auto) 9.5 (0.0-15.0) % Eos % (Auto) 1.8 (0.0-7.0) % Baso % (Auto) 0.3 (0.0-1.5) % Neut # (Auto) 8.0 H (1.4-5.7) K/uL Lymph # (Auto) 1.3 (0.6-2.4) K/uL [place] # (Auto) 1.0 H (0.0-0.8) K/uL Eos # (Auto) 0.2 (0.0-0.7) K/uL Baso # (Auto) 0.0 (0.0-0.1) K/uL Nucleated RBC % 0.0 /100WBC Nucleated RBCs # 0 K/uL Sodium 137 (136-148) mmol/L Potassium 4.4 (3.5-5.1) mmol/L Chloride 101 (98-107) mmol/L Carbon Dioxide 24.9 (21.0-32.0) mmol/L BUN 7 (7.0-18.0) mg/dL Creatinine 0.7 L (0.8-1.3) mg/dL Est Cr Clr Drug Dosing 188.65 mL/min Estimated GFR (MDRD) > 60.0 ml/min Glucose 94 (74-106) mg/dL Calcium 9.0 (8.5-10.1) mg/dL Total Bilirubin 0.7 (0.2-1.0) mg/dL AST 31 (15-37) IU/L ALT 29 (14-63) IU/L Alkaline Phosphatase 55 (46-116) U/L Total Protein 8.0 (6.4-8.2) g/dL Albumin 3.2 L (3.4-5.0) g/dL Globulin 4.8 H (2.6-4.0) g/dL Albumin/Globulin Ratio 0.7 L (0.9-1.6) Vancomycin Trough 7.8 (5.0-10.0) ug/mL 01/15/20 01/15/20 Range/Units 05:24 05:24 WBC 9.49 (4.0-11.0) K/uL RBC 3.82 L (4.50-5.90) M/uL Hgb 11.0 L (13.0-17.0) g/dL Hct 32.3 L (38.0-50.0) % MCV 84.6 (80.0-98.0) fL MCH 28.8 (27.0-32.0) pg MCHC 34.1 (31.0-37.0) g/dL RDW Std Deviation 37.8 (28.0-62.0) fl RDW Coeff of Francisca 12 (11.0-15.0) % Plt Count 211 (150-400) K/uL MPV 10.20 (7.40-12.00) fL Neut % (Auto) 74.6 (48.0-80.0) % Lymph % (Auto) 14.9 L (16.0-40.0) % [place] % (Auto) 8.3 (0.0-15.0) % Eos % (Auto) 1.9 (0.0-7.0) % Baso % (Auto) 0.3 (0.0-1.5) % Neut # (Auto) 7.1 H (1.4-5.7) K/uL Lymph # (Auto) 1.4 (0.6-2.4) K/uL [place] # (Auto) 0.8 (0.0-0.8) K/uL Eos # (Auto) 0.2 (0.0-0.7) K/uL Baso # (Auto) 0.0 (0.0-0.1) K/uL Nucleated RBC % 0.0 /100WBC Nucleated RBCs # 0 K/uL Sodium 138 (136-148) mmol/L Potassium 3.9 (3.5-5.1) mmol/L Chloride 104 (98-107) mmol/L Carbon Dioxide 22.5 (21.0-32.0) mmol/L BUN 5 L (7.0-18.0) mg/dL Creatinine 0.6 L (0.8-1.3) mg/dL Est Cr Clr Drug Dosing 220.09 mL/min Estimated GFR (MDRD) > 60.0 ml/min Glucose 96 (74-106) mg/dL Calcium 8.2 L (8.5-10.1) mg/dL Total Bilirubin (0.2-1.0) mg/dL AST (15-37) IU/L ALT (14-63) IU/L Alkaline Phosphatase (46-116) U/L Total Protein (6.4-8.2) g/dL Albumin (3.4-5.0) g/dL Globulin (2.6-4.0) g/dL Albumin/Globulin Ratio (0.9-1.6) Vancomycin Trough (5.0-10.0) ug/mL Hiren Results Last 24 Hours: Microbiology 01/12/20 23:59 Aerobic Blood Culture - Preliminary Blood - Venous - Lab Draw NO GROWTH AFTER 2 DAYS Anaerobic Blood Culture - Preliminary NO GROWTH AFTER 2 DAYS 01/12/20 23:56 Aerobic Blood Culture - Preliminary Blood - Venous NO GROWTH AFTER 2 DAYS Anaerobic Blood Culture - Final Med Orders - Current: Current Medications Acetaminophen (Tylenol Extra Strength) 500 mg PO Q4H PRN PRN Reason: Fever Last Admin: 01/14/20 12:27 Dose: 500 mg Documented by: Diphenhydramine HCl (Benadryl) 25 mg IVPUSH Q6H PRN PRN Reason: Itching Enoxaparin Sodium (Lovenox) 40 mg SUBCUT Q24H [facility] Last Admin: 01/14/20 14:56 Dose: 40 mg Documented by: Vancomycin HCl 1.5 gm/ Premix 300 mls @ 150 mls/hr IV Q8H [facility] Last Admin: 01/15/20 00:29 Dose: 150 mls/hr Documented by: Ceftriaxone Sodium/Dextrose 1 (gm/ Premix) 50 mls @ 100 mls/hr IV Q24H [facility] Last Admin: 01/14/20 12:27 Dose: 100 mls/hr Documented by: Ketorolac Tromethamine (Toradol) 15 mg IVPUSH Q6H PRN PRN Reason: Pain Last Admin: 01/15/20 05:17 Dose: 15 mg Documented by: Morphine Sulfate (Morphine) 2 mg IVPUSH Q6H PRN PRN Reason: Pain Last Admin: 01/14/20 17:22 Dose: 2 mg Documented by: Sodium Chloride (Saline Flush) 10 ml FLUSH ASDIRECTED PRN PRN Reason: Keep Vein Open Sodium Chloride (Saline Flush) 2.5 ml FLUSH ASDIRECTED PRN PRN Reason: Keep Vein Open Vancomycin HCl (Pharmacy To Dose - Vancomycin) 1 dose .XX ASDIRECTED [facility] Discontinued Medications Diphenhydramine HCl (Benadryl) 50 mg IVPUSH ONETIME ONE Stop: 01/13/20 00:56 Last Admin: 01/13/20 01:13 Dose: 50 mg Documented by: Heparin Sodium (Porcine) (Heparin Sodium) 5,000 units SUBCUT Q8H [facility] Last Admin: 01/13/20 06:06 Dose: 5,000 units Documented by: Vancomycin HCl 1,500 mg/ (Sodium Chloride) 100 mls @ 100 mls/hr IV ONETIME ONE Stop: 01/13/20 00:10 Last Admin: 01/13/20 00:02 Dose: 100 mls/hr Documented by: Sodium Chloride (Normal Saline) 3,000 mls @ 999 mls/hr IV .Bolus ONE Stop: 01/13/20 02:11 Last Admin: 01/12/20 23:33 Dose: 999 mls/hr Documented by: Vancomycin HCl 1.5 gm/ Premix 300 mls @ 300 mls/hr IV ONETIME ONE Stop: 01/13/20 00:02 Clindamycin Phosphate 600 mg/ (Sodium Chloride) 54 mls @ 100 mls/hr IV ONETIME ONE Stop: 01/13/20 01:28 Last Admin: 01/13/20 01:13 Dose: Not Given Documented by: Clindamycin Phosphate 900 mg/ (Premix) 50 mls @ 100 mls/hr IV ONETIME ONE Stop: 01/13/20 01:41 Last Admin: 01/13/20 01:12 Dose: 100 mls/hr Documented by: Lactated Ringer's (Ringers, Lactated) 1,000 mls @ 125 mls/hr IV ASDIRECTED [facility] Last Admin: 01/14/20 08:34 Dose: 125 mls/hr Documented by: Vancomycin HCl 1.25 gm/ Sodium (Chloride) 250 mls @ 166.667 mls/hr IV Q8H [facility] Last Admin: 01/14/20 14:40 Dose: Not Given Documented by: Ketorolac Tromethamine (Toradol) 15 mg IVPUSH ONETIME ONE Stop: 01/12/20 23:12 Last Admin: 01/12/20 23:36 Dose: 15 mg Documented by: Morphine Sulfate (Morphine) 4 mg IVPUSH ONETIME ONE Stop: 01/12/20 23:12 Last Admin: 01/12/20 23:37 Dose: 4 mg Documented by: Ondansetron HCl (Zofran) 4 mg IVPUSH ONETIME ONE Stop: 01/12/20 23:12 Last Admin: 01/12/20 23:34 Dose: 4 mg Documented by: - Exam General: Alert, Oriented, Cooperative, No Acute Distress Lungs: Clear to Auscultation, Normal Respiratory Effort Cardiovascular: Regular Rate, Regular Rhythm GI/Abdominal Exam: Normal Bowel Sounds, Soft, Non-Tender, No Distention Skin: Other (RLE: area of erythema appears to fairly stable since previous exam and within demarcated lines. Non-ttp, warm to touch, no fluctuance.) Sepsis Event Note - Evaluation Sepsis Screening Result: No Definite Risk - Focused Exam Vital Signs: Vital Signs Temp Pulse Resp BP Pulse Ox 01/15/20 07:21 36.9 C 89 16 126/65 98 01/15/20 03:47 38.0 C 95 16 122/62 97 01/15/20 00:28 37.8 C 88 16 123/68 98 - Problem List Review Problem List Initiated/Reviewed/Updated: Yes - Plan Plan:: Assessment and Plan: 1. Sepsis secondary to RLE cellulitis: - Area of erythema minimally improved since yesterday. Will continue IV ceftriaxone, IV vancomycin and continue to monitor. - Repeat blood cultures pending. RLE U/S negative for DVT. X-ray of right tib/fib showed subcutaneous edema and no findings to suggest osteomyelitis. 2. DVT prophylaxis: Heparin.
[2020-01-15] MEDS: Vancomycin 1.75 GM in Sodium Chloride 0.9% 500 ML IV SCH ×2 (09:38→19:15)
[2020-01-15] MEDS: cefTRIAXone 1 GM in Premix Bag 1 BAG IV SCH (11:58)
[2020-01-15] MEDS: Enoxaparin 40 MG/0.4 ML Syringe SUBCUT SCH (15:19)
[2020-01-15] MEDS: Morphine 2 MG/ML SYRINGE IVPUSH PRN (22:51)
[2020-01-16] MEDS: Ketorolac 15 MG/ML SDV IVPUSH PRN ×4 (00:35→20:41)
[2020-01-16] MEDS: Vancomycin 1.75 GM in Sodium Chloride 0.9% 500 ML IV SCH ×3 (02:13→16:31)
[2020-01-16 06:36] LABS: BLOOD UREA NITROGEN,BUN 5 mg/dL (7.0-18.0); CARBON DIOXIDE,CO2 25.5 mmol/L (21.0-32.0); CHLORIDE,CL 104 mmol/L (98-107); GLUCOSE RANDOM 91 mg/dL (74-106); POTASSIUM,K 3.5 mmol/L (3.5-5.1); SODIUM,NA 138 mmol/L (136-148)
--- NOTE | 2020-01-16 10:28 | PCM.PN ---
- General Info Date of Service: 01/16/20 Subjective Update: Denies any fevers, chills, nausea or vomiting. Still complains of RLE pain but notes improvement in redness. - Patient Data Vitals - Most Recent: Last Vital Signs Temp 36.9 C 01/16/20 07:25 Pulse 91 01/16/20 07:25 Resp 18 01/16/20 07:25 BP 136/81 01/16/20 07:25 Pulse Ox 98 01/16/20 07:25 Weight - Most Recent: 93 kg I&O - Last 24 Hours: Intake & Output 01/15/20 01/16/20 01/16/20 22:59 06:59 14:59 Intake Total 1400 1600 Output Total 700 1050 Balance 700 550 Lab Results Last 24 Hours: Laboratory Results - last 24 hr 01/16/20 01/16/20 01/16/20 Range/Units 05:33 05:33 09:04 WBC 6.92 (4.0-11.0) K/uL RBC 3.67 L (4.50-5.90) M/uL Hgb 10.5 L (13.0-17.0) g/dL Hct 31.0 L (38.0-50.0) % MCV 84.5 (80.0-98.0) fL MCH 28.6 (27.0-32.0) pg MCHC 33.9 (31.0-37.0) g/dL RDW Std Deviation 37.2 (28.0-62.0) fl RDW Coeff of Francisca 12 (11.0-15.0) % Plt Count 218 (150-400) K/uL MPV 10.30 (7.40-12.00) fL Neut % (Auto) 67.6 (48.0-80.0) % Lymph % (Auto) 18.6 (16.0-40.0) % [place] % (Auto) 9.7 (0.0-15.0) % Eos % (Auto) 3.8 (0.0-7.0) % Baso % (Auto) 0.3 (0.0-1.5) % Neut # (Auto) 4.7 (1.4-5.7) K/uL Lymph # (Auto) 1.3 (0.6-2.4) K/uL [place] # (Auto) 0.7 (0.0-0.8) K/uL Eos # (Auto) 0.3 (0.0-0.7) K/uL Baso # (Auto) 0.0 (0.0-0.1) K/uL Nucleated RBC % 0.0 /100WBC Nucleated RBCs # 0 K/uL Sodium 138 (136-148) mmol/L Potassium 3.5 (3.5-5.1) mmol/L Chloride 104 (98-107) mmol/L Carbon Dioxide 25.5 (21.0-32.0) mmol/L BUN 5 L (7.0-18.0) mg/dL Creatinine 0.8 (0.8-1.3) mg/dL Est Cr Clr Drug Dosing 165.07 mL/min Estimated GFR (MDRD) > 60.0 ml/min Glucose 91 (74-106) mg/dL Calcium 8.4 L (8.5-10.1) mg/dL Vancomycin Trough 13.7 H (5.0-10.0) ug/mL Hiren Results Last 24 Hours: Microbiology 01/14/20 10:59 Aerobic Blood Culture - Preliminary Blood - Venous - Lab Draw Anaerobic Blood Culture - Preliminary NO GROWTH AFTER 1 DAY 01/12/20 23:59 Aerobic Blood Culture - Preliminary Blood - Venous - Lab Draw NO GROWTH AFTER 3 DAYS Anaerobic Blood Culture - Preliminary NO GROWTH AFTER 3 DAYS 01/12/20 23:56 Aerobic Blood Culture - Preliminary Blood - Venous NO GROWTH AFTER 3 DAYS Anaerobic Blood Culture - Final 01/14/20 10:48 Aerobic Blood Culture - Preliminary Blood - Venous NO GROWTH AFTER 1 DAY Anaerobic Blood Culture - Preliminary NO GROWTH AFTER 1 DAY Med Orders - Current: Current Medications Acetaminophen (Tylenol Extra Strength) 500 mg PO Q4H PRN PRN Reason: Fever Last Admin: 01/14/20 12:27 Dose: 500 mg Documented by: Diphenhydramine HCl (Benadryl) 25 mg IVPUSH Q6H PRN PRN Reason: Itching Enoxaparin Sodium (Lovenox) 40 mg SUBCUT Q24H [facility] Last Admin: 01/15/20 15:19 Dose: 40 mg Documented by: Ceftriaxone Sodium/Dextrose 1 (gm/ Premix) 50 mls @ 100 mls/hr IV Q24H [facility] Last Admin: 01/15/20 11:58 Dose: 100 mls/hr Documented by: Vancomycin HCl 1.75 gm/ Sodium (Chloride) 500 mls @ 250 mls/hr IV Q8H [facility] Last Admin: 01/16/20 10:17 Dose: 250 mls/hr Documented by: Ketorolac Tromethamine (Toradol) 15 mg IVPUSH Q6H PRN PRN Reason: Pain Last Admin: 01/16/20 08:09 Dose: 15 mg Documented by: Morphine Sulfate (Morphine) 2 mg IVPUSH Q6H PRN PRN Reason: Pain Last Admin: 01/15/20 22:51 Dose: 2 mg Documented by: Sodium Chloride (Saline Flush) 10 ml FLUSH ASDIRECTED PRN PRN Reason: Keep Vein Open Sodium Chloride (Saline Flush) 2.5 ml FLUSH ASDIRECTED PRN PRN Reason: Keep Vein Open Vancomycin HCl (Pharmacy To Dose - Vancomycin) 1 dose .XX ASDIRECTED [facility] Discontinued Medications Diphenhydramine HCl (Benadryl) 50 mg IVPUSH ONETIME ONE Stop: 01/13/20 00:56 Last Admin: 01/13/20 01:13 Dose: 50 mg Documented by: Heparin Sodium (Porcine) (Heparin Sodium) 5,000 units SUBCUT Q8H [facility] Last Admin: 01/13/20 06:06 Dose: 5,000 units Documented by: Vancomycin HCl 1,500 mg/ (Sodium Chloride) 100 mls @ 100 mls/hr IV ONETIME ONE Stop: 01/13/20 00:10 Last Admin: 01/13/20 00:02 Dose: 100 mls/hr Documented by: Sodium Chloride (Normal Saline) 3,000 mls @ 999 mls/hr IV .Bolus ONE Stop: 01/13/20 02:11 Last Admin: 01/12/20 23:33 Dose: 999 mls/hr Documented by: Vancomycin HCl 1.5 gm/ Premix 300 mls @ 300 mls/hr IV ONETIME ONE Stop: 01/13/20 00:02 Clindamycin Phosphate 600 mg/ (Sodium Chloride) 54 mls @ 100 mls/hr IV ONETIME ONE Stop: 01/13/20 01:28 Last Admin: 01/13/20 01:13 Dose: Not Given Documented by: Clindamycin Phosphate 900 mg/ (Premix) 50 mls @ 100 mls/hr IV ONETIME ONE Stop: 01/13/20 01:41 Last Admin: 01/13/20 01:12 Dose: 100 mls/hr Documented by: Lactated Ringer's (Ringers, Lactated) 1,000 mls @ 125 mls/hr IV ASDIRECTED [facility] Last Admin: 01/14/20 08:34 Dose: 125 mls/hr Documented by: Vancomycin HCl 1.25 gm/ Sodium (Chloride) 250 mls @ 166.667 mls/hr IV Q8H [facility] Last Admin: 01/14/20 14:40 Dose: Not Given Documented by: Vancomycin HCl 1.5 gm/ Premix 300 mls @ 150 mls/hr IV Q8H [facility] Last Admin: 01/15/20 00:29 Dose: 150 mls/hr Documented by: Ketorolac Tromethamine (Toradol) 15 mg IVPUSH ONETIME ONE Stop: 01/12/20 23:12 Last Admin: 01/12/20 23:36 Dose: 15 mg Documented by: Morphine Sulfate (Morphine) 4 mg IVPUSH ONETIME ONE Stop: 01/12/20 23:12 Last Admin: 01/12/20 23:37 Dose: 4 mg Documented by: Ondansetron HCl (Zofran) 4 mg IVPUSH ONETIME ONE Stop: 01/12/20 23:12 Last Admin: 01/12/20 23:34 Dose: 4 mg Documented by: - Exam General: Alert, Oriented, Cooperative, No Acute Distress Lungs: Clear to Auscultation, Normal Respiratory Effort Cardiovascular: Regular Rate, Regular Rhythm GI/Abdominal Exam: Normal Bowel Sounds, Soft, Non-Tender, No Distention Skin: Other (RLE: outlined area is less erythematous and edematous today. ) Sepsis Event Note - Evaluation Sepsis Screening Result: No Definite Risk - Focused Exam Vital Signs: Vital Signs Temp Pulse Resp BP Pulse Ox 01/16/20 07:25 36.9 C 91 18 136/81 98 01/16/20 04:00 37.0 C 83 17 133/76 98 01/15/20 23:57 37.6 C 90 17 136/73 97 - Problem List Review Problem List Initiated/Reviewed/Updated: Yes - Plan Plan:: Assessment and Plan: 1. Sepsis secondary to RLE cellulitis: - Cellulitis appears less erythematous and edematous today. 1 out of 4 blood cultures returned positive for gram positive cocci in clusters. Will await sensitivities. Will continue IV ceftriaxone and IV vancomycin. - RLE U/S negative for DVT. X-ray of right tib/fib showed subcutaneous edema and no findings to suggest osteomyelitis. 2. DVT prophylaxis: Heparin.
[2020-01-16] MEDS: cefTRIAXone 1 GM in Premix Bag 1 BAG IV SCH (12:27)
[2020-01-16] MEDS: Enoxaparin 40 MG/0.4 ML Syringe SUBCUT SCH (14:24)
[2020-01-17] MEDS: Vancomycin 1.75 GM in Sodium Chloride 0.9% 500 ML IV SCH ×2 (01:34→12:00)
[2020-01-17 06:15] LABS: BLOOD UREA NITROGEN,BUN 6 mg/dL (7.0-18.0); CARBON DIOXIDE,CO2 23.8 mmol/L (21.0-32.0); CHLORIDE,CL 103 mmol/L (98-107); GLUCOSE RANDOM 94 mg/dL (74-106); POTASSIUM,K 3.7 mmol/L (3.5-5.1); SODIUM,NA 138 mmol/L (136-148)
[2020-01-17] MEDS: Ketorolac 15 MG/ML SDV IVPUSH PRN ×3 (08:16→21:04)
--- NOTE | 2020-01-17 09:18 | PCM.PN ---
- General Info Date of Service: 01/17/20 - Review of Systems Systems Review Comment:: no fevers, leg pain improving. - Patient Data Vitals - Most Recent: Last Vital Signs Temp 37.3 C 01/17/20 07:50 Pulse 81 01/17/20 07:50 Resp 16 01/17/20 07:50 BP 142/74 H 01/17/20 07:50 Pulse Ox 96 01/17/20 07:50 Weight - Most Recent: 93 kg I&O - Last 24 Hours: Intake & Output 01/16/20 01/17/20 01/17/20 22:59 06:59 14:59 Intake Total 1850 1950 Output Total 1600 1000 Balance 250 950 Lab Results Last 24 Hours: Laboratory Results - last 24 hr 01/16/20 01/17/20 01/17/20 Range/Units 09:04 05:50 05:50 WBC 6.84 (4.0-11.0) K/uL RBC 3.82 L (4.50-5.90) M/uL Hgb 11.0 L (13.0-17.0) g/dL Hct 32.3 L (38.0-50.0) % MCV 84.6 (80.0-98.0) fL MCH 28.8 (27.0-32.0) pg MCHC 34.1 (31.0-37.0) g/dL RDW Std Deviation 37.2 (28.0-62.0) fl RDW Coeff of Francisca 12 (11.0-15.0) % Plt Count 210 (150-400) K/uL MPV 9.80 (7.40-12.00) fL Neut % (Auto) 71.1 (48.0-80.0) % Lymph % (Auto) 13.6 L (16.0-40.0) % Curry % (Auto) 11.8 (0.0-15.0) % Eos % (Auto) 3.1 (0.0-7.0) % Baso % (Auto) 0.4 (0.0-1.5) % Neut # (Auto) 4.9 (1.4-5.7) K/uL Lymph # (Auto) 0.9 (0.6-2.4) K/uL Curry # (Auto) 0.8 (0.0-0.8) K/uL Eos # (Auto) 0.2 (0.0-0.7) K/uL Baso # (Auto) 0.0 (0.0-0.1) K/uL Nucleated RBC % 0.0 /100WBC Nucleated RBCs # 0 K/uL Sodium 138 (136-148) mmol/L Potassium 3.7 (3.5-5.1) mmol/L Chloride 103 (98-107) mmol/L Carbon Dioxide 23.8 (21.0-32.0) mmol/L BUN 6 L (7.0-18.0) mg/dL Creatinine 1.1 (0.8-1.3) mg/dL Est Cr Clr Drug Dosing 120.05 mL/min Estimated GFR (MDRD) > 60.0 ml/min Glucose 94 (74-106) mg/dL Calcium 8.5 (8.5-10.1) mg/dL Vancomycin Trough 13.7 H (5.0-10.0) ug/mL Hiren Results Last 24 Hours: Microbiology 01/14/20 10:59 Aerobic Blood Culture - Preliminary Blood - Venous - Lab Draw Anaerobic Blood Culture - Preliminary NO GROWTH AFTER 2 DAYS 01/12/20 23:59 Aerobic Blood Culture - Preliminary Blood - Venous - Lab Draw NO GROWTH AFTER 4 DAYS Anaerobic Blood Culture - Preliminary NO GROWTH AFTER 4 DAYS 01/12/20 23:56 Aerobic Blood Culture - Preliminary Blood - Venous NO GROWTH AFTER 4 DAYS Anaerobic Blood Culture - Final 01/14/20 10:48 Aerobic Blood Culture - Preliminary Blood - Venous NO GROWTH AFTER 2 DAYS Anaerobic Blood Culture - Preliminary NO GROWTH AFTER 2 DAYS Med Orders - Current: Current Medications Acetaminophen (Tylenol Extra Strength) 500 mg PO Q4H PRN PRN Reason: Fever Last Admin: 01/14/20 12:27 Dose: 500 mg Documented by: Diphenhydramine HCl (Benadryl) 25 mg IVPUSH Q6H PRN PRN Reason: Itching Enoxaparin Sodium (Lovenox) 40 mg SUBCUT Q24H [facility] Last Admin: 01/16/20 14:24 Dose: 40 mg Documented by: Ceftriaxone Sodium/Dextrose 1 (gm/ Premix) 50 mls @ 100 mls/hr IV Q24H MARGARETTE Last Admin: 01/16/20 12:27 Dose: 100 mls/hr Documented by: Vancomycin HCl 1.75 gm/ Sodium (Chloride) 500 mls @ 250 mls/hr IV Q8H MARGARETTE Last Admin: 01/17/20 01:34 Dose: 250 mls/hr Documented by: Ketorolac Tromethamine (Toradol) 15 mg IVPUSH Q6H PRN PRN Reason: Pain Last Admin: 01/17/20 08:16 Dose: 15 mg Documented by: Morphine Sulfate (Morphine) 2 mg IVPUSH Q6H PRN PRN Reason: Pain Last Admin: 01/15/20 22:51 Dose: 2 mg Documented by: Sodium Chloride (Saline Flush) 10 ml FLUSH ASDIRECTED PRN PRN Reason: Keep Vein Open Sodium Chloride (Saline Flush) 2.5 ml FLUSH ASDIRECTED PRN PRN Reason: Keep Vein Open Vancomycin HCl (Pharmacy To Dose - Vancomycin) 1 dose .XX ASDIRECTED MARGARETTE Discontinued Medications Diphenhydramine HCl (Benadryl) 50 mg IVPUSH ONETIME ONE Stop: 01/13/20 00:56 Last Admin: 01/13/20 01:13 Dose: 50 mg Documented by: Heparin Sodium (Porcine) (Heparin Sodium) 5,000 units SUBCUT Q8H MARGARETTE Last Admin: 01/13/20 06:06 Dose: 5,000 units Documented by: Vancomycin HCl 1,500 mg/ (Sodium Chloride) 100 mls @ 100 mls/hr IV ONETIME ONE Stop: 01/13/20 00:10 Last Admin: 01/13/20 00:02 Dose: 100 mls/hr Documented by: Sodium Chloride (Normal Saline) 3,000 mls @ 999 mls/hr IV .Bolus ONE Stop: 01/13/20 02:11 Last Admin: 01/12/20 23:33 Dose: 999 mls/hr Documented by: Vancomycin HCl 1.5 gm/ Premix 300 mls @ 300 mls/hr IV ONETIME ONE Stop: 01/13/20 00:02 Clindamycin Phosphate 600 mg/ (Sodium Chloride) 54 mls @ 100 mls/hr IV ONETIME ONE Stop: 01/13/20 01:28 Last Admin: 01/13/20 01:13 Dose: Not Given Documented by: Clindamycin Phosphate 900 mg/ (Premix) 50 mls @ 100 mls/hr IV ONETIME ONE Stop: 01/13/20 01:41 Last Admin: 01/13/20 01:12 Dose: 100 mls/hr Documented by: Lactated Ringer's (Ringers, Lactated) 1,000 mls @ 125 mls/hr IV ASDIRECTED [facility] Last Admin: 01/14/20 08:34 Dose: 125 mls/hr Documented by: Vancomycin HCl 1.25 gm/ Sodium (Chloride) 250 mls @ 166.667 mls/hr IV Q8H [facility] Last Admin: 01/14/20 14:40 Dose: Not Given Documented by: Vancomycin HCl 1.5 gm/ Premix 300 mls @ 150 mls/hr IV Q8H [facility] Last Admin: 01/15/20 00:29 Dose: 150 mls/hr Documented by: Ketorolac Tromethamine (Toradol) 15 mg IVPUSH ONETIME ONE Stop: 01/12/20 23:12 Last Admin: 01/12/20 23:36 Dose: 15 mg Documented by: Morphine Sulfate (Morphine) 4 mg IVPUSH ONETIME ONE Stop: 01/12/20 23:12 Last Admin: 01/12/20 23:37 Dose: 4 mg Documented by: Ondansetron HCl (Zofran) 4 mg IVPUSH ONETIME ONE Stop: 01/12/20 23:12 Last Admin: 01/12/20 23:34 Dose: 4 mg Documented by: - Exam General: Alert, Oriented Neck: Supple Lungs: Clear to Auscultation, Normal Respiratory Effort Cardiovascular: Regular Rate, Regular Rhythm GI/Abdominal Exam: Soft, Non-Tender Extremities: No Pedal Edema Skin: Rash (erythema improving over right anterior lower leg) Sepsis Event Note - Evaluation Sepsis Screening Result: No Definite Risk - Focused Exam Vital Signs: Vital Signs Temp Pulse Resp BP Pulse Ox 01/17/20 07:50 37.3 C 81 16 142/74 H 96 01/17/20 04:32 37.2 C 82 16 131/80 98 01/17/20 01:00 37.2 C 84 16 137/71 96 - Problem List Review Problem List Initiated/Reviewed/Updated: Yes - Plan Plan:: 19 yo male admitted with sepsis from right lower leg cellulitis. 06/03 blood cultures returned positive for gram positive cocci in clusters. Will continue IV antibiotics. If continues to improved anticipate discharge home tomorrow.
[2020-01-17] MEDS: cefTRIAXone 1 GM in Premix Bag 1 BAG IV SCH (11:59)
[2020-01-17] MEDS: Enoxaparin 40 MG/0.4 ML Syringe SUBCUT SCH (14:50)
[2020-01-18] MEDS: Ketorolac 15 MG/ML SDV IVPUSH PRN (08:00)
[2020-01-18] MEDS: cefTRIAXone 1 GM in Premix Bag 1 BAG IV SCH (11:34)
--- NOTE | 2020-01-18 11:37 | PCM.DCSUM1 ---
<Kee Ulloa - Last Filed: 01/18/20 16:10> Discharge Summary - Hospital Course Free Text/Narrative:: 19 yr old male patient was admitted to the medicine floor for 6 days due to cellulitis of the lower right extremity. Patient presented to the ED on 01/12 with a 1 week history of right leg redness, pain and swelling. Prior to the patients visit on 01/12 he was seen in the ED 2 days prior, diagnosed with cellulitis and prescribed keflex and bactrim. Patient states that he took the abx course for 2 days and noticed that his leg redness and swelling became worse. He revisited the ED, was started on IV vancomycin and admitted to the floor for continued IV antibiotics and follow up care. Patient was continued on IV antibiotics and monitored during his stay on the medicine floor This morning patient states that his leg swelling and redness have improved significantly since admission and feels that he is ready to go home. Pain has been well controlled. Diagnosis: Stroke: No - Discharge Data Discharge Date: 01/18/20 Discharge Disposition: Home, Self-Care 01 Condition: Good - Referral to Home Health Primary Care Physician: Edgar Verde MD - Discharge Diagnosis/Problem(s) (1) Cellulitis SNOMED Code(s): 378199894 ICD Code: L03.90 - CELLULITIS, UNSPECIFIED Status: Acute Qualifiers: Site of cellulitis of extremity: lower extremity - Patient Instructions Diet: Usual Diet as Tolerated Activity: Rest and Relax Today Showering/Bathing: May Shower Notify Provider of: Fever, Increased Pain, Swelling and Redness, Nausea and/or Vomiting - Discharge Plan *PRESCRIPTION DRUG MONITORING PROGRAM REVIEWED*: No *COPY OF PRESCRIPTION DRUG MONITORING REPORT IN PATIENT LA: Not Applicable Prescriptions/Med Rec: Doxycycline Monohydrate 100 mg PO BID 5 Days #10 capsule Home Medications: Home Meds Doxycycline Monohydrate 100 mg PO BID 5 Days #10 capsule 01/18/20 [Rx] Patient Handouts: Doxycycline tablets or capsules, Cellulitis, Adult, [id number] Referrals: Kee Ulloa MD [Resident] - 01/27/20 2:00 pm (Please arrive 15 minutes early with your insurance cards, identification and your own facemask.) Edgar Verde MD [Primary Care Provider] - - Discharge Summary/Plan Comment DC Time >30 min.: No - General Info Date of Service: 01/18/20 Functional Status: Reports: Pain Controlled - Review of Systems General: Reports: No Symptoms HEENT: Reports: No Symptoms Pulmonary: Reports: No Symptoms Cardiovascular: Reports: No Symptoms Gastrointestinal: Reports: Nausea Musculoskeletal: Reports: No Symptoms, Other Skin: Reports: Other (redness, swelling of the right lower extremity) Neurological: Reports: No Symptoms - Patient Data Vitals - Most Recent: Last Vital Signs Temp 99 F 01/18/20 07:34 Pulse 84 01/18/20 07:34 Resp 16 01/18/20 07:34 BP 131/64 01/18/20 07:34 Pulse Ox 96 01/18/20 07:34 Weight - Most Recent: 93 kg I&O - Last 24 hours: Intake & Output 01/17/20 01/18/20 01/18/20 22:59 06:59 14:59 Intake Total 1300 1500 300 Output Total 1400 1000 Balance -100 500 300 SHERRELL Results - Last 24 hrs: Microbiology 01/14/20 10:59 Aerobic Blood Culture - Final Blood - Venous - Lab Draw Anaerobic Blood Culture - Preliminary NO GROWTH AFTER 4 DAYS 01/14/20 10:48 Aerobic Blood Culture - Preliminary Blood - Venous NO GROWTH AFTER 4 DAYS Anaerobic Blood Culture - Preliminary NO GROWTH AFTER 4 DAYS 01/12/20 23:59 Aerobic Blood Culture - Final Blood - Venous - Lab Draw NO GROWTH AFTER 5 DAYS Anaerobic Blood Culture - Final NO GROWTH AFTER 5 DAYS 01/12/20 23:56 Aerobic Blood Culture - Final Blood - Venous NO GROWTH AFTER 5 DAYS Anaerobic Blood Culture - Final Med Orders - Current: Current Medications Acetaminophen (Tylenol Extra Strength) 500 mg PO Q4H PRN PRN Reason: Fever Last Admin: 01/14/20 12:27 Dose: 500 mg Documented by: Diphenhydramine HCl (Benadryl) 25 mg IVPUSH Q6H PRN PRN Reason: Itching Enoxaparin Sodium (Lovenox) 40 mg SUBCUT Q24H MARGARETTE Last Admin: 01/17/20 14:50 Dose: 40 mg Documented by: Ceftriaxone Sodium/Dextrose 1 (gm/ Premix) 50 mls @ 100 mls/hr IV Q24H [facility]ARGARETTE Last Admin: 01/18/20 11:34 Dose: 100 mls/hr Documented by: Vancomycin HCl 1.5 gm/ Premix 300 mls @ 150 mls/hr IV Q8H [facility]ARGAR[facility]TE Last Admin: 01/18/20 04:54 Dose: 150 mls/hr Documented by: Ketorolac Tromethamine (Toradol) 15 mg IVPUSH Q6H PRN PRN Reason: Pain Last Admin: 01/18/20 08:00 Dose: 15 mg Documented by: Morphine Sulfate (Morphine) 2 mg IVPUSH Q6H PRN PRN Reason: Pain Last Admin: 01/15/20 22:51 Dose: 2 mg Documented by: Sodium Chloride (Saline Flush) 10 ml FLUSH ASDIRECTED PRN PRN Reason: Keep Vein Open Sodium Chloride (Saline Flush) 2.5 ml FLUSH ASDIRECTED PRN PRN Reason: Keep Vein Open Vancomycin HCl (Pharmacy To Dose - Vancomycin) 1 dose .XX ASDIRECTED MARGARETTE Discontinued Medications Diphenhydramine HCl (Benadryl) 50 mg IVPUSH ONETIME ONE Stop: 01/13/20 00:56 Last Admin: 01/13/20 01:13 Dose: 50 mg Documented by: Heparin Sodium (Porcine) (Heparin Sodium) 5,000 units SUBCUT Q8H MARGARETTE Last Admin: 01/13/20 06:06 Dose: 5,000 units Documented by: Vancomycin HCl 1,500 mg/ (Sodium Chloride) 100 mls @ 100 mls/hr IV ONETIME ONE Stop: 01/13/20 00:10 Last Admin: 01/13/20 00:02 Dose: 100 mls/hr Documented by: Sodium Chloride (Normal Saline) 3,000 mls @ 999 mls/hr IV .Bolus ONE Stop: 01/13/20 02:11 Last Admin: 01/12/20 23:33 Dose: 999 mls/hr Documented by: Vancomycin HCl 1.5 gm/ Premix 300 mls @ 300 mls/hr IV ONETIME ONE Stop: 01/13/20 00:02 Clindamycin Phosphate 600 mg/ (Sodium Chloride) 54 mls @ 100 mls/hr IV ONETIME ONE Stop: 01/13/20 01:28 Last Admin: 01/13/20 01:13 Dose: Not Given Documented by: Clindamycin Phosphate 900 mg/ (Premix) 50 mls @ 100 mls/hr IV ONETIME ONE Stop: 01/13/20 01:41 Last Admin: 01/13/20 01:12 Dose: 100 mls/hr Documented by: Lactated Ringer's (Ringers, Lactated) 1,000 mls @ 125 mls/hr IV ASDIRECTED [facility] Last Admin: 01/14/20 08:34 Dose: 125 mls/hr Documented by: Vancomycin HCl 1.25 gm/ Sodium (Chloride) 250 mls @ 166.667 mls/hr IV Q8H [facility] Last Admin: 01/14/20 14:40 Dose: Not Given Documented by: Vancomycin HCl 1.5 gm/ Premix 300 mls @ 150 mls/hr IV Q8H [facility] Last Admin: 01/15/20 00:29 Dose: 150 mls/hr Documented by: Vancomycin HCl 1.75 gm/ Sodium (Chloride) 500 mls @ 250 mls/hr IV Q8H [facility] Last Admin: 01/17/20 12:00 Dose: Not Given Documented by: Ketorolac Tromethamine (Toradol) 15 mg IVPUSH ONETIME ONE Stop: 01/12/20 23:12 Last Admin: 01/12/20 23:36 Dose: 15 mg Documented by: Morphine Sulfate (Morphine) 4 mg IVPUSH ONETIME ONE Stop: 01/12/20 23:12 Last Admin: 01/12/20 23:37 Dose: 4 mg Documented by: Ondansetron HCl (Zofran) 4 mg IVPUSH ONETIME ONE Stop: 01/12/20 23:12 Last Admin: 01/12/20 23:34 Dose: 4 mg Documented by: - Exam General: Reports: Alert, Oriented, Cooperative HEENT: Reports: Pupils Reactive Neck: Reports: Trachea Midline Lungs: Reports: Clear to Auscultation Cardiovascular: Reports: Regular Rate, Regular Rhythm GI/Abdominal Exam: Soft, Non-Tender, No Distention Back Exam: Reports: Normal Inspection Extremities: Normal Range of Motion Skin: Reports: Other (Patients right lower extremity is warm to touch, eryhthema tous, and slightly swollen. Patient does not have any pain with movment at the knee or ankle joint. ) <Simone Rodriguez - Last Filed: 01/19/20 20:04> Discharge Summary - Referral to Home Health Primary Care Physician: Edgar Verde MD - Patient Data Vitals - Most Recent: Last Vital Signs Temp 36.7 C 01/18/20 11:38 Pulse 80 01/18/20 11:38 Resp 17 01/18/20 11:38 BP 139/73 01/18/20 11:38 Pulse Ox 95 01/18/20 11:38 SHERRELL Results - Last 24 hrs: Microbiology 01/14/20 10:59 Aerobic Blood Culture - Final Blood - Venous - Lab Draw Anaerobic Blood Culture - Final NO GROWTH AFTER 5 DAYS 01/14/20 10:48 Aerobic Blood Culture - Final Blood - Venous NO GROWTH AFTER 5 DAYS Anaerobic Blood Culture - Final NO GROWTH AFTER 5 DAYS Med Orders - Current: Current Medications Discontinued Medications Acetaminophen (Tylenol Extra Strength) 500 mg PO Q4H PRN PRN Reason: Fever Last Admin: 01/14/20 12:27 Dose: 500 mg Documented by: Diphenhydramine HCl (Benadryl) 50 mg IVPUSH ONETIME ONE Stop: 01/13/20 00:56 Last Admin: 01/13/20 01:13 Dose: 50 mg Documented by: Diphenhydramine HCl (Benadryl) 25 mg IVPUSH Q6H PRN PRN Reason: Itching Enoxaparin Sodium (Lovenox) 40 mg SUBCUT Q24H [facility] Last Admin: 01/17/20 14:50 Dose: 40 mg Documented by: Heparin Sodium (Porcine) (Heparin Sodium) 5,000 units SUBCUT Q8H [facility] Last Admin: 01/13/20 06:06 Dose: 5,000 units Documented by: Vancomycin HCl 1,500 mg/ (Sodium Chloride) 100 mls @ 100 mls/hr IV ONETIME ONE Stop: 01/13/20 00:10 Last Admin: 01/13/20 00:02 Dose: 100 mls/hr Documented by: Sodium Chloride (Normal Saline) 3,000 mls @ 999 mls/hr IV .Bolus ONE Stop: 01/13/20 02:11 Last Admin: 01/12/20 23:33 Dose: 999 mls/hr Documented by: Vancomycin HCl 1.5 gm/ Premix 300 mls @ 300 mls/hr IV ONETIME ONE Stop: 01/13/20 00:02 Clindamycin Phosphate 600 mg/ (Sodium Chloride) 54 mls @ 100 mls/hr IV ONETIME ONE Stop: 01/13/20 01:28 Last Admin: 01/13/20 01:13 Dose: Not Given Documented by: Clindamycin Phosphate 900 mg/ (Premix) 50 mls @ 100 mls/hr IV ONETIME ONE Stop: 01/13/20 01:41 Last Admin: 01/13/20 01:12 Dose: 100 mls/hr Documented by: Lactated Ringer's (Ringers, Lactated) 1,000 mls @ 125 mls/hr IV ASDIRECTED [facility] Last Admin: 01/14/20 08:34 Dose: 125 mls/hr Documented by: Vancomycin HCl 1.25 gm/ Sodium (Chloride) 250 mls @ 166.667 mls/hr IV Q8H [facility] Last Admin: 01/14/20 14:40 Dose: Not Given Documented by: Vancomycin HCl 1.5 gm/ Premix 300 mls @ 150 mls/hr IV Q8H [facility] Last Admin: 01/15/20 00:29 Dose: 150 mls/hr Documented by: Ceftriaxone Sodium/Dextrose 1 (gm/ Premix) 50 mls @ 100 mls/hr IV Q24H [facility] Last Admin: 01/18/20 11:34 Dose: 100 mls/hr Documented by: Vancomycin HCl 1.75 gm/ Sodium (Chloride) 500 mls @ 250 mls/hr IV Q8H [facility] Last Admin: 01/17/20 12:00 Dose: Not Given Documented by: Vancomycin HCl 1.5 gm/ Premix 300 mls @ 150 mls/hr IV Q8H [facility] Last Admin: 01/18/20 11:40 Dose: Not Given Documented by: Ketorolac Tromethamine (Toradol) 15 mg IVPUSH ONETIME ONE Stop: 01/12/20 23:12 Last Admin: 01/12/20 23:36 Dose: 15 mg Documented by: Ketorolac Tromethamine (Toradol) 15 mg IVPUSH Q6H PRN PRN Reason: Pain Last Admin: 01/18/20 08:00 Dose: 15 mg Documented by: Morphine Sulfate (Morphine) 4 mg IVPUSH ONETIME ONE Stop: 01/12/20 23:12 Last Admin: 01/12/20 23:37 Dose: 4 mg Documented by: Morphine Sulfate (Morphine) 2 mg IVPUSH Q6H PRN PRN Reason: Pain Last Admin: 01/15/20 22:51 Dose: 2 mg Documented by: Ondansetron HCl (Zofran) 4 mg IVPUSH ONETIME ONE Stop: 01/12/20 23:12 Last Admin: 01/12/20 23:34 Dose: 4 mg Documented by: Sodium Chloride (Saline Flush) 10 ml FLUSH ASDIRECTED PRN PRN Reason: Keep Vein Open Sodium Chloride (Saline Flush) 2.5 ml FLUSH ASDIRECTED PRN PRN Reason: Keep Vein Open Vancomycin HCl (Pharmacy To Dose - Vancomycin) 1 dose .XX ASDIRECTED MARGARETTE - Free Text/Narrative Note: I have seen and evaluated the patient. I have discussed findings and treatment plan with resident. I agree with the assessment and plan as outlined in the following note.
== END 2020-01-18 13:40 | disposition home or self-care (01) | DRG 720 ==
LOC: MW.ED 22:43 → MW.MS 01-13 01:03 → OBSVTOIN 01-14 10:29 → MW.MS 01-14 12:30
PROVIDERS: ADMIT Student in an Organized Health Care Education/Training Program; ATTEND Student in an Organized Health Care Education/Training Program
DX: A41.89 Other specified sepsis (principal); L03.115 Cellulitis of right lower limb; Z20.828 Contact with and (suspected) exposure to other viral communicable diseases
CPT/HCPCS: 36415; 73590-26-RT; 73590-RT; 80048; 80053; 80202; 83605; 85025; 87040; 93971-26-RT; 93971-RT; 96361; 96365; 96366; 96367; 96372; 96375; 96376; 99284; 99284-25; A9270-GY; G0378; J0696; J1200; J1644; J1650; J1885; J2270; J2405; J3370; J3490; J7030; J7040; J7050; J7120; U0002